=== PATIENT | male | born 1960 | race Caucasian/White ===

== ENCOUNTER → 2016-12-14 | Outpatient (CLI) | payer OTHER | LOC: M WUC 09:58 | PROVIDERS: ATTEND Nurse Practitioner Family | DX: E29.1 Testicular hypofunction (principal) ==

== ENCOUNTER → 2016-12-21 | Outpatient (CLI) | payer OTHER ==
[2016-12-21 19:00] LABS: ALBUMIN 4.3 GM/DL (3.2-5.2); ALBUMIN/GLOBULIN RATIO 1.34 (1.00-1.93); ALKALINE PHOSPHATASE 75 U/L (45-117); ALT/SGPT 38 U/L (12-78); ANION GAP 8 MEQ/L (8-16); AST/SGOT 14 U/L (15-37); BILIRUBIN,TOTAL 0.7 MG/DL (0.2-1.0); BLOOD UREA NITROGEN 14 MG/DL (7-18); CARBON DIOXIDE LEVEL 32 MEQ/L (21-32); CHLORIDE LEVEL 103 MEQ/L (98-107); CHOLESTEROL LEVEL 206 MG/DL (<200); CREATININE FOR GFR 1.06 MG/DL (0.70-1.30); GLOMERULAR FILTRATION RATE > 60.0 (>56); GLUCOSE, FASTING 78 MG/DL (70-105); POTASSIUM SERUM 4.2 MEQ/L (3.5-5.1); SODIUM LEVEL 143 MEQ/L (136-145); TOTAL PROTEIN 7.5 GM/DL (6.4-8.2); TRIGLYCERIDES LEVEL 320 MG/DL (<150)
[2016-12-23 14:12] LABS: PSA TOTAL 0.7 ng/mL (0.0-4.0)
== END ==
LOC: M WUC 12:21
PROVIDERS: ATTEND Nurse Practitioner Family
DX: E29.1 Testicular hypofunction (principal); E55.9 Vitamin D deficiency, unspecified; E78.4 Other hyperlipidemia; I10 Essential (primary) hypertension

== ENCOUNTER → 2017-02-02 | Outpatient (CLI) | payer OTHER | LOC: M WUC 08:10 | PROVIDERS: ATTEND Nurse Practitioner Family | DX: E29.1 Testicular hypofunction (principal) ==

== ENCOUNTER → 2017-10-18 | Outpatient (CLI) | payer OTHER ==
[2017-10-18 09:33] LABS: ANION GAP 5 MEQ/L (8-16); BLOOD UREA NITROGEN 18 MG/DL (7-18); CALCIUM LEVEL 9.3 MG/DL (8.5-10.1); CARBON DIOXIDE LEVEL 32 MEQ/L (21-32); CHLORIDE LEVEL 104 MEQ/L (98-107); CREATININE FOR GFR 1.18 MG/DL (0.70-1.30); GLOMERULAR FILTRATION RATE > 60.0 (>56); GLUCOSE, FASTING 92 MG/DL (70-105); POTASSIUM SERUM 5.1 MEQ/L (3.5-5.1); SODIUM LEVEL 141 MEQ/L (136-145)
== END ==
LOC: M WUC 08:15
PROVIDERS: ATTEND Nurse Practitioner Family
DX: I10 Essential (primary) hypertension (principal)

== ENCOUNTER → 2017-12-14 | Outpatient (CLI) | payer OTHER ==
[2017-12-17 00:06] LABS: TESTOSTERONE FREE (DIRECT) 49.1 pg/mL (7.2-24.0); TESTOSTERONE TOTAL FOR T&D > 1500.0 ng/dL (264-916)
== END ==
LOC: M WUC 12:40
DX: E29.1 Testicular hypofunction (principal)
CPT/HCPCS: 84403

== ENCOUNTER → 2017-12-14 | Outpatient (CLI) | payer OTHER | LOC: M WUC 12:36 | DX: M25.522 Pain in left elbow (principal) | CPT/HCPCS: 73080 ==

== ENCOUNTER → 2018-01-02 | Outpatient (CLI) | payer OTHER | LOC: M WUC 09:11 | DX: E29.1 Testicular hypofunction (principal) | CPT/HCPCS: 84403 ==

== ENCOUNTER → 2018-02-26 | Outpatient (CLI) | payer OTHER ==
[2018-02-28 00:06] LABS: TESTOSTERONE FREE (DIRECT) 18.4 pg/mL (7.2-24.0)
== END ==
LOC: M WUC 10:02
DX: E29.1 Testicular hypofunction (principal)
CPT/HCPCS: 84403

== ENCOUNTER → 2018-05-08 | Outpatient (CLI) | payer OTHER ==
[2018-05-08 12:49] LABS: TESTOSTERONE 841 NG/DL (241-827)
[2018-05-12 00:07] LABS: TESTOSTERONE %FREE+WEAKLY BOUN 18.8 % (9.0-46.0); TESTOSTERONE FREE+WEAKLY BOUND 163.2 ng/dL (40.0-250.0); TESTOSTERONE TOTAL 868 ng/dL (264-916)
== END ==
LOC: M WUC 09:44
DX: E29.1 Testicular hypofunction (principal)

== ENCOUNTER → 2018-09-04 | Outpatient (CLI) | payer OTHER ==
[2018-09-04 17:22] LABS: BASO # 0.1 10^3/uL (0.0-0.2); EOS # 0.1 10^3/uL (0.0-0.50); EOS % 1.6 % (0.0-3.0); HEMATOCRIT 40.1 % (42.0-52.0); HEMOGLOBIN 13.4 g/dl (13.5-17.5); IMMATURE GRANULOCYTE % 0.6 % (0-3.0); LYMPH # 1.5 10^3/uL (1.5-4.5); LYMPH % 30.8 % (24.0-44.0); MEAN CORPUSCULAR HEMOGLOBIN 33.3 pg (27.0-33.0); MEAN CORPUSCULAR HGB CONC 33.4 g/dl (32.0-36.5); MEAN CORPUSCULAR VOLUME 99.8 fl (80.0-96.0); MONO # 0.5 10^3/uL (0.0-0.8); MONO % 9.4 % (0.0-5.0); NEUTROPHILS # 2.8 10^3/uL (1.8-7.7); NEUTROPHILS % 56.6 % (36.0-66.0); PLATELET COUNT, AUTOMATED 304 10^3/uL (150-450); RED BLOOD COUNT 4.02 10^6/uL (4.30-6.10); RED CELL DISTRIBUTION WIDTH 12.2 % (11.5-14.5); WHITE BLOOD COUNT 4.9 10^3/uL (4.0-10.0)
[2018-09-04 18:20] LABS: ALBUMIN 3.9 GM/DL (3.2-5.2); ALBUMIN/GLOBULIN RATIO 1.18 (1.00-1.93); ALKALINE PHOSPHATASE 66 U/L (45-117); ALT/SGPT 27 U/L (12-78); ANION GAP 8 MEQ/L (8-16); AST/SGOT 18 U/L (7-37); BILIRUBIN,TOTAL 0.5 MG/DL (0.2-1.0); BLOOD UREA NITROGEN 18 MG/DL (7-18); CALCIUM LEVEL 8.8 MG/DL (8.5-10.1); CARBON DIOXIDE LEVEL 28 MEQ/L (21-32); CHLORIDE LEVEL 104 MEQ/L (98-107); CHOLESTEROL LEVEL 227 MG/DL (<200); CREATININE FOR GFR 1.01 MG/DL (0.70-1.30); GLOMERULAR FILTRATION RATE > 60.0 (>56); GLUCOSE, FASTING 75 MG/DL (70-100); HDL CHOLESTEROL 50 MG/DL (>40); LDL CHOLESTEROL 125 MG/DL (<100); NON-HDL-C 177 MG/DL; POTASSIUM SERUM 4.3 MEQ/L (3.5-5.1); SODIUM LEVEL 140 MEQ/L (136-145); TOTAL 25(OH) VITAMIN D 58.4 NG/ML (30.0-100.0); TOTAL PROTEIN 7.2 GM/DL (6.4-8.2); TRIGLYCERIDES LEVEL 261 MG/DL (<150)
[2018-09-07 00:24] LABS: PSA TOTAL 0.7 ng/mL (0.0-4.0)
[2018-09-09 00:06] LABS: TESTOSTERONE %FREE+WEAKLY BOUN 17.7 % (9.0-46.0); TESTOSTERONE FREE+WEAKLY BOUND 81.8 ng/dL (40.0-250.0); TESTOSTERONE TOTAL 462 ng/dL (264-916)
== END ==
LOC: M WUC 13:43
DX: I10 Essential (primary) hypertension (principal); Z12.5 Encounter for screening for malignant neoplasm of prostate; E29.1 Testicular hypofunction; E55.9 Vitamin D deficiency, unspecified

== ENCOUNTER → 2018-09-04 | Outpatient (CLI) | payer OTHER ==
[2018-09-04 17:54] LABS: FOLLICLE STIMULATING HORMONE 13.3 mIU/mL (1.4-18.1)
[2018-09-04 17:54] LABS: LUTEINIZING HORMONE 9.6 mIU/mL (1.5-9.3); PROLACTIN 8.4 NG/ML (2.1-17.7)
[2018-09-09 00:06] LABS: TESTOSTERONE %FREE+WEAKLY BOUN 13.8 % (9.0-46.0); TESTOSTERONE FREE+WEAKLY BOUND 63.2 ng/dL (40.0-250.0); TESTOSTERONE TOTAL 458 ng/dL (264-916)
== END ==
LOC: M WUC 13:38
DX: E29.1 Testicular hypofunction (principal)

== ENCOUNTER 2019-04-15 12:08 | Day surgery (SDC) | payer OTHER ==
[~2019-04-15] VITALS: Ht 185.4 cm; Wt 89.8 kg
[~2019-04-15 12:08] MED LIST: ASPI81TA85 PO; CENT1TAB2 PO; CLOB0.0548 TOP; GEMF600T5 PO; LEXA1TAB2 PO; LIPI80TA PO; LISI-538 PO; NS 1,000 ML IV ONE; OMEP-218 PO; PROP80CA PO; ULTR37.54 PO; VENL75TA2 PO; VIAG100T PO; VITA1CAP25 PO
[2019-04-15] MEDS ORDERED: PROPOFOL 200 MG/20 ML VIAL As Ordered ONE ×2 (13:18→13:30)
[2019-04-15] MEDS ORDERED: LIDOCAINE 2% INJ 100 MG/5 ML SDV (FOR ANES.) As Ordered ONE (13:18)
--- NOTE | 2019-04-15 13:53 | ROOR ---
Patient Name: Hung Davis Procedure Date: 04/15/2019 1:27 PM Date of : 1960 Age: 58 Room: [facility] Gender: Male Note Status: Finalized Procedure: Total Colonoscopy to Cecum + Cold Snare Polypectomy + Hemoclips Indications: High risk colon cancer surveillance: Personal history of colonic polyps, Last colonoscopy: 2014 Providers: Gregg Groves MD Referring MD: Yandel Ramirez NP Requesting Provider: Medicines: Monitored Anesthesia Care Complications: No immediate complications. Procedure: Pre-Anesthesia Assessment: - The heart rate, respiratory rate, oxygen saturations, blood pressure, adequacy of pulmonary ventilation, and response to care were monitored throughout the procedure. The Colonoscope was introduced through the anus and advanced to the cecum, identified by appendiceal orifice and ileocecal valve. The colonoscopy was performed without difficulty. The patient tolerated the procedure well. The quality of the bowel preparation was excellent. Findings: The perianal and digital rectal examinations were normal. Non-bleeding internal hemorrhoids were found during retroflexion. The hemorrhoids were small and Grade I (internal hemorrhoids that do not prolapse). Scattered small-mouthed diverticula were found in the recto-sigmoid colon, sigmoid colon and descending colon. Multiple sessile polyps were found in the proximal ascending colon. The polyps were small in size. These polyps were removed with a cold snare. Resection and retrieval were complete. To prevent bleeding after the polypectomy, two hemostatic clips were successfully placed (MR conditional). There was no bleeding at the end of the procedure. The exam was otherwise without abnormality on direct and retroflexion views. Impression: - Non-bleeding internal hemorrhoids. - Diverticulosis in the recto-sigmoid colon, in the sigmoid colon and in the descending colon. - Multiple small polyps in the proximal ascending colon, removed with a cold snare. Resected and retrieved. Clips (MR conditional) were placed. - The examination was otherwise normal on direct and retroflexion views. - The exam was otherwise normal to the cecum. Recommendation: - Patient has a contact number available for emergencies. The signs and symptoms of potential delayed complications were discussed with the patient. Return to normal activities tomorrow. Written discharge instructions were provided to the patient. - High fiber diet. - Discharge patient to home. - Continue present medications. - Await pathology results. - Telephone GI clinic for pathology results in 1 week. - Repeat colonoscopy in 5 years for surveillance based on pathology results. - Return to referring physician. - The findings and recommendations were discussed with the patient's family. Gregg Groves MD Gregg Groves MD 04/15/2019 1:52:39 PM Electronically signed by Gregg Groves MD Number of Addenda: 0 Note Initiated On: 04/15/2019 1:27 PM Estimated Blood Loss: Estimated blood loss: none.
[2019-04-15 14:20] VITALS: BP 121/71
== END 2019-04-15 14:22 | disposition home or self-care (01) ==
LOC: M OPP 12:08
PROVIDERS: ATTEND Internal Medicine Gastroenterology
DX: D12.2 Benign neoplasm of ascending colon (principal); K64.0 First degree hemorrhoids; K57.30 Diverticulosis of large intestine without perforation or abscess without bleeding; Z86.010 Personal history of colon polyps

== ENCOUNTER → 2019-09-03 | Outpatient (CLI) | payer OTHER ==
[~2019-09-03] MED LIST changes: -NS 1,000 ML IV ONE
[2019-09-03 13:02] LABS: BASO # 0.1 10^3/uL (0.0-0.2); BASO % 1.3 % (0.0-1.0); EOS # 0.1 10^3/uL (0.0-0.5); EOS % 2.3 % (0.0-3.0); HEMATOCRIT 41.6 % (42.0-52.0); HEMOGLOBIN 13.9 g/dl (13.5-17.5); LYMPH # 1.1 10^3/uL (1.5-5.0); LYMPH % 22.5 % (24.0-44.0); MEAN CORPUSCULAR HGB CONC 33.4 g/dl (32.0-36.5); MEAN CORPUSCULAR VOLUME 95.6 fl (80.0-96.0); MONO # 0.6 10^3/uL (0.0-0.8); MONO % 11.5 % (0.0-5.0); NEUTROPHILS % 62.2 % (36.0-66.0); PLATELET COUNT, AUTOMATED 296 10^3/uL (150-450); RED BLOOD COUNT 4.35 10^6/uL (4.30-6.10); WHITE BLOOD COUNT 4.8 10^3/uL (4.0-10.0)
[2019-09-03 13:43] LABS: ALBUMIN 4.1 GM/DL (3.2-5.2); ALT/SGPT 25 U/L (12-78); BILIRUBIN,TOTAL 0.3 MG/DL (0.2-1.0); BLOOD UREA NITROGEN 20 MG/DL (7-18); CALCIUM LEVEL 8.8 MG/DL (8.5-10.1); CARBON DIOXIDE LEVEL 28 MEQ/L (21-32); CHLORIDE LEVEL 103 MEQ/L (98-107); CHOLESTEROL LEVEL 314 MG/DL (<200); CHOLESTEROL RISK RATIO 6.408 (<5); CREATININE FOR GFR 1.06 MG/DL (0.70-1.30); FREE T4 0.94 NG/DL (0.76-1.46); GLOMERULAR FILTRATION RATE > 60.0 (>56); GLUCOSE, FASTING 94 MG/DL (70-100); HDL CHOLESTEROL 49 MG/DL (>40); LDL CHOLESTEROL 206 MG/DL (<100); MAGNESIUM LEVEL 2.2 MG/DL (1.8-2.4); NON-HDL-C 265 MG/DL; POTASSIUM SERUM 4.7 MEQ/L (3.5-5.1); SODIUM LEVEL 140 MEQ/L (136-145); THYROID STIMULATING HORMONE 0.689 uIU/ML (0.358-3.740); TOTAL 25(OH) VITAMIN D 48.4 NG/ML (30.0-100.0); TOTAL PROTEIN 7.5 GM/DL (6.4-8.2); TRIGLYCERIDES LEVEL 294 MG/DL (<150)
[2019-09-03 15:27] LABS: HEMOGLOBIN A1c 5.6 %
== END ==
LOC: M WUC 11:47
PROVIDERS: ATTEND Nurse Practitioner Family
DX: I10 Essential (primary) hypertension (principal); E78.5 Hyperlipidemia, unspecified; E55.9 Vitamin D deficiency, unspecified

== ENCOUNTER → 2019-12-12 | Outpatient (CLI) | payer OTHER ==
[2019-12-12 16:20] LABS: BASO # 0.1 10^3/uL (0.0-0.2); BASO % 0.7 % (0.0-1.0); EOS # 0.2 10^3/uL (0.0-0.5); EOS % 2.7 % (0.0-3.0); HEMATOCRIT 41.8 % (42.0-52.0); HEMOGLOBIN 13.6 g/dl (13.5-17.5); LYMPH # 1.8 10^3/uL (1.5-5.0); LYMPH % 27.1 % (24.0-44.0); MEAN CORPUSCULAR HEMOGLOBIN 32.2 pg (27.0-33.0); MEAN CORPUSCULAR HGB CONC 32.5 g/dl (32.0-36.5); MEAN CORPUSCULAR VOLUME 98.8 fl (80.0-96.0); MONO # 0.6 10^3/uL (0.0-0.8); MONO % 9.1 % (0.0-5.0); NEUTROPHILS % 60.1 % (36.0-66.0); PLATELET COUNT, AUTOMATED 272 10^3/uL (150-450); RED BLOOD COUNT 4.23 10^6/uL (4.30-6.10); WHITE BLOOD COUNT 6.7 10^3/uL (4.0-10.0)
[2019-12-12 16:30] LABS: ALBUMIN 4.1 GM/DL (3.2-5.2); ALT/SGPT 28 U/L (12-78); BILIRUBIN,TOTAL 0.7 MG/DL (0.2-1.0); BLOOD UREA NITROGEN 18 MG/DL (7-18); CALCIUM LEVEL 8.6 MG/DL (8.5-10.1); CARBON DIOXIDE LEVEL 29 MEQ/L (21-32); CHLORIDE LEVEL 106 MEQ/L (98-107); CHOLESTEROL LEVEL 225 MG/DL (<200); CHOLESTEROL RISK RATIO 4.166 (<5); CREATININE FOR GFR 1.06 MG/DL (0.70-1.30); GLOMERULAR FILTRATION RATE > 60.0 (>56); GLUCOSE, FASTING 92 MG/DL (70-100); HDL CHOLESTEROL 54 MG/DL (>40); LDL CHOLESTEROL 102 MG/DL (<100); NON-HDL-C 171 MG/DL; POTASSIUM SERUM 4.3 MEQ/L (3.5-5.1); SODIUM LEVEL 140 MEQ/L (136-145); TOTAL PROTEIN 7.2 GM/DL (6.4-8.2); TRIGLYCERIDES LEVEL 343 MG/DL (<150)
[2019-12-12 16:38] LABS: TOTAL 25(OH) VITAMIN D 47.4 NG/ML (30.0-100.0)
== END ==
LOC: M WUC 11:46
PROVIDERS: ATTEND Nurse Practitioner Family
DX: I10 Essential (primary) hypertension (principal); E78.5 Hyperlipidemia, unspecified; E55.9 Vitamin D deficiency, unspecified; Z12.5 Encounter for screening for malignant neoplasm of prostate
CPT/HCPCS: 36415; 80053; 80061; 82306; 85025; G0103

== ENCOUNTER → 2019-12-16 | Outpatient (CLI) | payer OTHER ==
--- NOTE | 2019-12-17 01:19 | REPPI ---
Clinical: Trauma. Pain. Technique: AP, lateral, bilateral oblique views of the left hand. Findings: No acute fracture or dislocation. A 2 mm corticated density is appreciated adjacent to the base of the fifth proximal phalanx which appears nonacute. Generalized age-related changes noted. No subcutaneous emphysema or foreign body. Impression: No acute fracture dislocation. As above. Electronically Signed by Juan Daniel Mehta MD 12/17/2019 01:11 A
== END ==
LOC: M PLAIMG 11:54
PROVIDERS: ATTEND Nurse Practitioner Family
DX: M79.642 Pain in left hand (principal)

== ENCOUNTER → 2020-06-02 | Outpatient (CLI) | payer OTHER ==
[~2020-06-02] MED LIST changes: -ASPI81TA85 PO; +ASPI81TA86 PO
--- NOTE | 2020-06-03 07:28 | REPPI ---
HAND: REASON FOR EXAM: Hand pain. FINDINGS: The joint spaces are symmetric and relatively well maintained. There is no evidence of acute fracture or destructive osseous lesion. IMPRESSION: Negative. Electronically Signed by Gunner Jennings DO 06/03/2020 09:33 A
== END ==
LOC: M PLAIMG 15:47
PROVIDERS: ATTEND Physician Assistant
DX: M79.641 Pain in right hand (principal)

== ENCOUNTER → 2020-11-09 | Outpatient (REF) | payer OTHER ==
[2020-11-09 14:30] LABS: BASO # 0.1 10^3/uL (0.0-0.2); EOS # 0.2 10^3/uL (0.0-0.5); EOS % 2.8 % (0.0-3.0); HEMATOCRIT 40.1 % (42.0-52.0); HEMOGLOBIN 12.8 g/dl (13.5-17.5); LYMPH # 1.6 10^3/uL (1.5-5.0); LYMPH % 25.7 % (24.0-44.0); MEAN CORPUSCULAR HGB CONC 31.9 g/dl (32.0-36.5); MEAN CORPUSCULAR VOLUME 100.3 fl (80.0-96.0); MONO # 0.7 10^3/uL (0.0-0.8); NEUTROPHILS # 3.6 10^3/uL (1.5-8.5); NEUTROPHILS % 59.3 % (36.0-66.0); PLATELET COUNT, AUTOMATED 279 10^3/uL (150-450); WHITE BLOOD COUNT 6.1 10^3/uL (4.0-10.0)
[2020-11-09 14:54] LABS: HEMOGLOBIN A1c 5.5 %
[2020-11-09 15:17] LABS: ALBUMIN 3.9 GM/DL (3.2-5.2); ALT/SGPT 57 U/L (12-78); BILIRUBIN,TOTAL 0.4 MG/DL (0.2-1.0); BLOOD UREA NITROGEN 24 MG/DL (7-18); CALCIUM LEVEL 9.5 MG/DL (8.8-10.2); CARBON DIOXIDE LEVEL 32 MEQ/L (21-32); CHLORIDE LEVEL 107 MEQ/L (98-107); CHOLESTEROL LEVEL 220 MG/DL (<200); CREATININE FOR GFR 1.18 MG/DL (0.70-1.30); FREE T4 0.94 NG/DL (0.76-1.46); GLOMERULAR FILTRATION RATE > 60.0 (>49); GLUCOSE, FASTING 91 MG/DL (70-100); HDL CHOLESTEROL 53 MG/DL (>40); LDL CHOLESTEROL 109 MG/DL (<100); LIPASE 156 U/L (73-393); NON-HDL-C 167 MG/DL; POTASSIUM SERUM 4.4 MEQ/L (3.5-5.1); SODIUM LEVEL 140 MEQ/L (136-145); THYROID STIMULATING HORMONE 0.683 uIU/ML (0.358-3.740); TOTAL 25(OH) VITAMIN D 45.3 NG/ML (30.0-100.0); TOTAL PROTEIN 7.3 GM/DL (6.4-8.2); TRIGLYCERIDES LEVEL 291 MG/DL (<150)
== END ==
LOC: M SFHCPLAZ 10:56
PROVIDERS: ATTEND Nurse Practitioner Family
DX: R19.8 Other specified symptoms and signs involving the digestive system and abdomen (principal); I10 Essential (primary) hypertension; E78.5 Hyperlipidemia, unspecified; R73.01 Impaired fasting glucose; E55.9 Vitamin D deficiency, unspecified

== ENCOUNTER → 2020-11-09 | Outpatient (CLI) | payer OTHER ==
--- NOTE | 2020-11-09 14:59 | REPPI ---
INDICATION: ABDOMINAL FULLNESS. COMPARISON: None. TECHNIQUE: Two AP supine views of the abdomen and pelvis. FINDINGS: The bowel gas pattern is normal. There is scattered fecal residue throughout the nondistended colon. There is tiny calcifications in the pelvis, likely phleboliths. There is lumbar scoliosis convex left at the lumbosacral junction. IMPRESSION: Normal bowel gas pattern. <Electronically signed by Nicholas Bird > 11/09/20 [id number]
== END ==
LOC: M PLAIMG 10:57
PROVIDERS: ATTEND Nurse Practitioner Family
DX: R19.8 Other specified symptoms and signs involving the digestive system and abdomen (principal)

== ENCOUNTER 2021-01-26 19:43 | Observation (INO) | payer OTHER ==
[~2021-01-26] VITALS: Ht 185.4 cm; Wt 89.6 kg
[~2021-01-26 19:43] MED LIST changes: -LISI-538 PO; +LISI20TA33 PO
[2021-01-26] MEDS ORDERED: hydrALAZINE 20MG/ML 1ML VIAL (J0360 PER 20MG) IV STA (19:55)
[2021-01-26] MEDS ORDERED: ISOVUE-370 76% 100ML VIAL As Ordered ONE (20:03)
[2021-01-26 20:12] LABS: BASO # 0.1 10^3/uL (0.0-0.2); BASO % 0.8 % (0.0-1.0); EOS # 0.1 10^3/uL (0.0-0.5); EOS % 1.7 % (0.0-3.0); HEMATOCRIT 37.4 % (42.0-52.0); HEMOGLOBIN 12.9 g/dl (13.5-17.5); LYMPH # 0.9 10^3/uL (1.5-5.0); LYMPH % 14.5 % (24.0-44.0); MEAN CORPUSCULAR HGB CONC 34.5 g/dl (32.0-36.5); MEAN CORPUSCULAR VOLUME 92.8 fl (80.0-96.0); MONO # 0.4 10^3/uL (0.0-0.8); MONO % 6.5 % (2.0-8.0); NEUTROPHILS # 4.9 10^3/uL (1.5-8.5); NEUTROPHILS % 76.3 % (36.0-66.0); PLATELET COUNT, AUTOMATED 284 10^3/uL (150-450); RED BLOOD COUNT 4.03 10^6/uL (4.30-6.10); WHITE BLOOD COUNT 6.4 10^3/uL (4.0-10.0)
--- NOTE | 2021-01-26 20:18 | REPVR ---
PROCEDURE INFORMATION: Exam: XR Chest Exam date and time: 01/26/2021 8:04 PM Age: 60 years old Clinical indication: Other: Elevated BP TECHNIQUE: Imaging protocol: XR of the chest Views: 1 view. COMPARISON: No relevant prior studies available. FINDINGS: Lungs: Degree of lung inflation is normal. No evidence of pulmonary edema. No focal consolidation or parenchymal lung mass. Pleural spaces: No pleural effusion or pneumothorax. Heart/Mediastinum: Cardiac silhouette appears normal. No adenopathy or hilar mass. Bones/joints: Osseous structures show no concerning abnormality. IMPRESSION: No acute or focal cardiopulmonary process. Electronically signed by: Oracio Liz On 01/26/2021 20:19:07 PM
[2021-01-26 20:22] LABS: PARTIAL THROMBOPLASTIN TIME 25.8 SECONDS (24.2-38.5)
[2021-01-26] MEDS ORDERED: niCARdipine IV 40 MG in IV 1 EA IV SCH (20:26)
[2021-01-26 20:29] LABS: ERYTHROCYTE SEDIMENTATION RATE 12 mm/hr (0-20)
--- NOTE | 2021-01-26 20:31 | REPVR ---
PROCEDURE INFORMATION: Exam: CT Head Without Contrast Exam date and time: 01/26/2021 8:07 PM Age: 60 years old Clinical indication: Pain; Headache; Additional info: Headache/ h/o aneurysm TECHNIQUE: Imaging protocol: Computed tomography of the head without contrast. Radiation optimization: All CT scans at this facility use at least one of these dose optimization techniques: automated exposure control; mA and/or kV adjustment per patient size (includes targeted exams where dose is matched to clinical indication); or iterative reconstruction. COMPARISON: No relevant prior studies available. FINDINGS: Brain: No intracranial mass, mass effect or midline shift. No acute intracranial hemorrhage. No CT evidence of acute cortical infarct. Ventricles, cisterns, and sulci are normal in size for age. Right parietal volume loss, gliosis and compensatory right lateral ventricle dilatation Bones/joints: No calvarial fracture or destructive process. Right parietal craniotomy changes, mature Paranasal sinuses: Imaged paranasal sinuses are normally aerated. Mastoid air cells: Mastoid air cells and middle ear structures are normally aerated. Orbital cavity: Imaged orbits are unremarkable. Soft tissues: No focal extracranial soft tissue swelling. IMPRESSION: 1. No acute or concerning focal intracranial abnormality. No evidence of subarachnoid hemorrhage. 2. Postsurgical changes of right parietal craniotomy and probable prior mass resection, with volume loss Electronically signed by: Oracio Liz On 01/26/2021 20:31:26 PM
--- NOTE | 2021-01-26 20:34 | REPVR ---
PROCEDURE INFORMATION: Exam: CT Angiography Neck With Contrast Exam date and time: 01/26/2021 8:07 PM Age: 60 years old Clinical indication: Pain; Headache; Additional info: Headache/ h/o aneurysm TECHNIQUE: Imaging protocol: Computed tomography angiography of the neck with intravenous contrast. 3D rendering (Not supervised by radiologist): MIP and/or 3D reconstructed images were created by the technologist. Radiation optimization: All CT scans at this facility use at least one of these dose optimization techniques: automated exposure control; mA and/or kV adjustment per patient size (includes targeted exams where dose is matched to clinical indication); or iterative reconstruction. Contrast material: ISOVUE 370; Contrast volume: 75 ml; Contrast route: INTRAVENOUS (IV); COMPARISON: No relevant prior studies available. FINDINGS: Right common carotid, cervical ICA and proximal ECA demonstrate contrast opacification with no occlusion, flow limiting stenosis, or intimal flap to suggest dissection. Mild right carotid bulb calcified plaque with negligible hemodynamic effect Left common carotid, cervical ICA and proximal ECA demonstrate contrast opacification, with no occlusion, flow limiting stenosis, or intimal flap to suggest dissection. Mild left carotid bulb calcified eccentric plaque with milder than 50% luminal caliber narrowing. Normal left ICA Vertebral arteries demonstrate normal course to the level of the skull base and show no occlusion, flow limiting stenosis or dissection. No flow limiting stenosis or anomaly of the great vessel origins. No concerning asymmetric neck soft tissue abnormality. Multi-level cervical degenerative disc and articular pillar arthropathy is present. IMPRESSION: Mild calcified bilateral carotid bulb atherosclerotic plaque with certainly milder than 50% luminal caliber narrowing, negligible hemodynamic effect bilaterally. REFERENCES: NASCET CRITERIA. The degree of internal carotid artery stenosis is based on NASCET criteria. Normal is no stenosis. Mild is less than 50% stenosis. Moderate is 50-69% stenosis. Severe is 70% to 99% stenosis. Total occlusion is no detectable patent lumen. Electronically signed by: Oracio Liz On 01/26/2021 20:34:40 PM
[2021-01-26 20:36] LABS: INR 0.98; PROTHROMBIN TIME 13.2 SECONDS (12.5-14.3)
--- NOTE | 2021-01-26 20:36 | REPVR ---
PROCEDURE INFORMATION: Exam: CT Angiography Head With Contrast Exam date and time: 01/26/2021 8:07 PM Age: 60 years old Clinical indication: Pain; Headache; Additional info: Headache/ h/o aneurysm TECHNIQUE: Imaging protocol: Computed tomography angiography of the head with intravenous contrast. 3D rendering (Not supervised by radiologist): MIP and/or 3D reconstructed images were created by the technologist. Radiation optimization: All CT scans at this facility use at least one of these dose optimization techniques: automated exposure control; mA and/or kV adjustment per patient size (includes targeted exams where dose is matched to clinical indication); or iterative reconstruction. Contrast material: ISOVUE 370; Contrast volume: 75 ml; Contrast route: INTRAVENOUS (IV); COMPARISON: No relevant prior studies available. FINDINGS: Left parietal vertex volume loss with overlying craniotomy Ventricles, cisterns and sulci are otherwise symmetric and appropriate for age. No intracranial mass or focal mass effect. No intracranial hemorrhage, midline shift or acute territorial infarct. Anterior circulation: Normal contrast opacification and luminal caliber in the petrous, cavernous and supraclinoid internal carotid arteries. Normal appearance of the anterior cerebral artery branches and middle cerebral artery branches through the MCA trifurcations. No occlusion, high-grade focal stenosis or dissection. No aneurysm. Posterior circulation: Minimal atherosclerotic plaque, right vertebral artery at the occipital condyle level. Normally enhancing distal vertebral arteries, with patent normal caliber basilar artery, and normal superior cerebellar and posterior cerebral arteries. No occlusion, high-grade stenosis or aneurysm. Dural sinuses enhance normally. Bony structures show no acute fracture or destructive process. IMPRESSION: Unremarkable CT Angiogram of the head and [place]. No intracranial large vessel occlusive or high-grade stenotic lesion and no evidence of intracranial aneurysm Electronically signed by: Oracio Liz On 01/26/2021 20:37:17 PM
[2021-01-26] MEDS ORDERED: ONDANSETRON 4MG/2ML VIAL IV ONE ×2 (20:40→20:50)
[2021-01-26] MEDS ORDERED: ONDANSETRON 4MG/2ML VIAL As Ordered ONE (20:48)
[2021-01-26] MEDS: OMEPRAZOLE 20 MG CAP PO SCH (21:00)
[2021-01-26 21:04] LABS: ALBUMIN 2.6 GM/DL (3.2-5.2); ALT/SGPT 27 U/L (12-78); BILIRUBIN,DIRECT 0.1 MG/DL (0.0-0.2); BILIRUBIN,TOTAL 0.4 MG/DL (0.2-1.0); BLOOD UREA NITROGEN 14 MG/DL (7-18); CALCIUM LEVEL 5.6 MG/DL (8.8-10.2); CARBON DIOXIDE LEVEL 19 MEQ/L (21-32); CHLORIDE LEVEL 119 MEQ/L (98-107); CK-MB VALUE MASS 1.1 NG/ML (<3.6); CPK CREATINE PHOSPHOKINASE 67 U/L (39-308); CREATININE FOR GFR 0.49 MG/DL (0.70-1.30); FREE T4 1.01 NG/DL (0.76-1.46); GLOMERULAR FILTRATION RATE > 60.0 (>49); GLUCOSE, FASTING 102 MG/DL (70-100); MB/CK RELATIVE INDEX 1.64 (< OR =4); NT-PRO BNP 85 PG/ML (<125); POTASSIUM SERUM 2.8 MEQ/L (3.5-5.1); SODIUM LEVEL 145 MEQ/L (136-145); THYROID STIMULATING HORMONE 0.337 uIU/ML (0.358-3.740); TOTAL PROTEIN 4.7 GM/DL (6.4-8.2); TROPONIN I < 0.02 NG/ML (< 0.10)
[2021-01-26 22:45] LABS: AMPHETAMINES LEVEL URINE NEGATIVE (NEGATIVE); BARBITURATES URINE NEGATIVE (NEGATIVE); BENZODIAZEPINES URINE NEGATIVE (NEGATIVE); CANNABINOIDS URINE POSITIVE (NEGATIVE); COCAINE METABOLITE URINE NEGATIVE (NEGATIVE); METHADONE URINE NEGATIVE (NEGATIVE); OPIATES URINE NEGATIVE (NEGATIVE); PHENCYCLIDINE URINE NEGATIVE (NEGATIVE)
[2021-01-26 22:48] LABS: RSV AMPLIFICATION NEGATIVE (NEGATIVE)
[2021-01-26 22:50] LABS: BLOOD UREA NITROGEN 18 MG/DL (7-18); CALCIUM LEVEL 8.7 MG/DL (8.8-10.2); CARBON DIOXIDE LEVEL 29 MEQ/L (21-32); CHLORIDE LEVEL 103 MEQ/L (98-107); CREATININE FOR GFR 0.96 MG/DL (0.70-1.30); GLOMERULAR FILTRATION RATE > 60.0 (>49); GLUCOSE, FASTING 115 MG/DL (70-100); MAGNESIUM LEVEL 1.9 MG/DL (1.8-2.4); POTASSIUM SERUM 3.9 MEQ/L (3.5-5.1); SODIUM LEVEL 137 MEQ/L (136-145)
[2021-01-26] MEDS ORDERED: PROP80CA PO ×2 (22:56→23:06)
[2021-01-26] MEDS ORDERED: LISI20TA33 PO ×2 (22:56→23:06)
[2021-01-26] MEDS ORDERED: OMEP-218 PO (22:56)
[2021-01-26] MEDS ORDERED: VITMTA PO ×2 (22:56→23:06)
[2021-01-26] MEDS ORDERED: ULTR37.54 PO ×2 (22:56→23:06)
[2021-01-26] MEDS ORDERED: ASPI-161 PO ×2 (22:56→23:03)
[2021-01-26] MEDS ORDERED: VITA50005 PO ×2 (22:56→23:03)
[2021-01-26] MEDS ORDERED: VENL75TA2 PO ×2 (22:56→23:06)
[2021-01-26] MEDS ORDERED: ATOR80TA59 PO (23:03)
[2021-01-26] MEDS ORDERED: OMEP1CAP73 PO (23:06)
[2021-01-26] MEDS ORDERED: VIAG100T PO (23:06)
[2021-01-26] MEDS ORDERED: PERCOCET 5MG/325MG TAB PO ONE (23:50)
[2021-01-26] MEDS ORDERED: CYCLOBENZAPRINE 5MG TABLET PO ONE (23:50)
--- NOTE | 2021-01-26 23:53 | HPEPDOC ---
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 Patient admits to dietary indiscretion with increased salt intake at home, but denies chest pain, pressure, confusion, chest tightness, chest heaviness, lightheadedness, dizziness, palpitations, diaphoresis, shortness of breath, changes in vision, nausea, vomiting, or worsening upper or lower extremity weakness or paresthesias. Patient denies any fever, chills, rhinorrhea, or recent upper respiratory infection. In the emergency room he was found to have blood pressure of 236/116, hypokalemia, hypocalcemia, and metabolic acidosis. CT of the head was negative for intracranial hemorrhage. CTA of the neck was negative. Chest x-ray had no pulmonary edema or widened mediastinum. EKG showed sinus rhythm, ventricular rate of [address]-T wave changes. Troponin was negative. Patient denies any recreational drug use, noncompliance with blood pressure medications, or history of hyperaldosteronism. He also complains of neck spasms which he has at home, usually alleviated with tramadol as needed. Hospitalist was asked to admit for hypertensive urgency with no end organ damage and electrolyte abnormalities. 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 Colonoscopy by Dr. Groves March 2019 SOCIAL HISTORY: Denies recreational drug use. Quit smoking at the age of 27 smoked a pack a day from age [age], divorce. 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 Patient has a son and daughter. No designated healthcare proxy . Full code FAMILY HISTORY: . Father unknown causes in his 70s. Mother with kidney failure. Siblings alive. One brother of testicular cancer. Has 1 son, 1 daughter, both of whom are healthy ALLERGIES: Please see below. REVIEW OF SYSTEMS: 12 point review of system is negative aside from positive findings in HPI. HOME MEDICATIONS: Please see below. PHYSICAL EXAMINATION: VITAL SIGNS: See below GENERAL APPEARANCE: Awake, alert, oriented 3, answering questions appropriately. No respiratory distress, pallor, cyanosis HEENT: Pupils equally round, reactive to light accommodation. Extraocular muscles intact. No JVD, no thyromegaly, no cervical lymphadenopathy. Moist mucous membranes. Face is symmetric. Tongue is midline CARDIOVASCULAR: S1, S2 regular rate rhythm. Nondisplaced point of maximal impulse LUNGS: Clear to auscultation. Bronchial breath sounds .No wheezing rales or rhonchi ABDOMEN: Positive bowel sounds, soft, nontender, nondistended, no hepatosplenomegaly. No rebound or guarding. No abdominal bruit EXTREMITIES: No cyanosis, clubbing or pitting edema NEUROLOGIC: Awake, alert, oriented 3. Face is symmetric. Tongue is midline with dysmetria and finger to nose testing. No pronator drift. Left upper lower extremity 5 out of 5 motor function. No sensory disturbance, bilateral upper and lower extremities. Right upper and lower extremity 4 out of 5-chronic since left parietal craniotomy per the patient. Negative Babinski bilaterally. Speech is fluent. LABORATORY DATA: See below. IMAGING: Exam: CT Angiography Head With Contrast Exam date and time: 01/26/2021 8:07 PM Age: 60 years old Clinical indication: Pain; Headache; Additional info: Headache/ h/o aneurysm TECHNIQUE: Imaging protocol: Computed tomography angiography of the head with intravenous contrast. 3D rendering (Not supervised by radiologist): MIP and/or 3D reconstructed images were created by the technologist. Radiation optimization: All CT scans at this facility use at least one of these dose optimization techniques: automated exposure control; mA and/or kV adjustment per patient size (includes targeted exams where dose is matched to clinical indication); or iterative reconstruction. Contrast material: ISOVUE 370; Contrast volume: 75 ml; Contrast route: INTRAVENOUS (IV); COMPARISON: No relevant prior studies available. FINDINGS: Left parietal vertex volume loss with overlying craniotomy Ventricles, cisterns and sulci are otherwise symmetric and appropriate for age. No intracranial mass or focal mass effect. No intracranial hemorrhage, midline shift or acute territorial infarct. Anterior circulation: Normal contrast opacification and luminal caliber in the petrous, cavernous and supraclinoid internal carotid arteries. Normal appearance of the anterior cerebral artery branches and middle cerebral artery branches through the MCA trifurcations. No occlusion, high-grade focal stenosis or dissection. No aneurysm. Posterior circulation: Minimal atherosclerotic plaque, right vertebral artery at the occipital condyle level. Normally enhancing distal vertebral arteries, with patent normal caliber basilar artery, and normal superior cerebellar and posterior cerebral arteries. No occlusion, high-grade stenosis or aneurysm. Dural sinuses enhance normally. Bony structures show no acute fracture or destructive process. IMPRESSION: Unremarkable CT Angiogram of the head and [place]. No intracranial large vessel occlusive or high-grade stenotic lesion and no evidence of intracranial aneurysm Electronically signed by: Oracio Liz On 01/26/2021 20:37:17 PM MICROBIOLOGY: Please see below. Exam: CT Head Without Contrast Exam date and time: 01/26/2021 8:07 PM Age: 60 years old Clinical indication: Pain; Headache; Additional info: Headache/ h/o aneurysm TECHNIQUE: Imaging protocol: Computed tomography of the head without contrast. Radiation optimization: All CT scans at this facility use at least one of these dose optimization techniques: automated exposure control; mA and/or kV adjustment per patient size (includes targeted exams where dose is matched to clinical indication); or iterative reconstruction. COMPARISON: No relevant prior studies available. FINDINGS: Brain: No intracranial mass, mass effect or midline shift. No acute intracranial hemorrhage. No CT evidence of acute cortical infarct. Ventricles, cisterns, and sulci are normal in size for age. Right parietal volume loss, gliosis and compensatory right lateral ventricle dilatation Bones/joints: No calvarial fracture or destructive process. Right parietal craniotomy changes, mature Paranasal sinuses: Imaged paranasal sinuses are normally aerated. Mastoid air cells: Mastoid air cells and middle ear structures are normally aerated. Orbital cavity: Imaged orbits are unremarkable. Soft tissues: No focal extracranial soft tissue swelling. IMPRESSION: 1. No acute or concerning focal intracranial abnormality. No evidence of subarachnoid hemorrhage. 2. Postsurgical changes of right parietal craniotomy and probable prior mass resection, with volume loss Electronically signed by: Oracio Liz On 01/26/2021 20:31:26 PM Exam: CT Angiography Neck With Contrast Exam date and time: 01/26/2021 8:07 PM Age: 60 years old Clinical indication: Pain; Headache; Additional info: Headache/ h/o aneurysm TECHNIQUE: Imaging protocol: Computed tomography angiography of the neck with intravenous contrast. 3D rendering (Not supervised by radiologist): MIP and/or 3D reconstructed images were created by the technologist. Radiation optimization: All CT scans at this facility use at least one of these dose optimization techniques: automated exposure control; mA and/or kV adjustment per patient size (includes targeted exams where dose is matched to clinical indication); or iterative reconstruction. Contrast material: ISOVUE 370; Contrast volume: 75 ml; Contrast route: INTRAVENOUS (IV); COMPARISON: No relevant prior studies available. FINDINGS: Right common carotid, cervical ICA and proximal ECA demonstrate contrast opacification with no occlusion, flow limiting stenosis, or intimal flap to suggest dissection. Mild right carotid bulb calcified plaque with negligible hemodynamic effect Left common carotid, cervical ICA and proximal ECA demonstrate contrast opacification, with no occlusion, flow limiting stenosis, or intimal flap to suggest dissection. Mild left carotid bulb calcified eccentric plaque with milder than 50% luminal caliber narrowing. Normal left ICA Vertebral arteries demonstrate normal course to the level of the skull base and show no occlusion, flow limiting stenosis or dissection. No flow limiting stenosis or anomaly of the great vessel origins. No concerning asymmetric neck soft tissue abnormality. Multi-level cervical degenerative disc and articular pillar arthropathy is present. IMPRESSION: Mild calcified bilateral carotid bulb atherosclerotic plaque with certainly milder than 50% luminal caliber narrowing, negligible hemodynamic effect bilaterally. REFERENCES: NASCET CRITERIA. The degree of internal carotid artery stenosis is based on NASCET criteria. Normal is no stenosis. Mild is less than 50% stenosis. Moderate is 50-69% stenosis. Severe is 70% to 99% stenosis. Total occlusion is no detectable patent lumen. Electronically signed by: Oracio Liz On 01/26/2021 20:34:40 PM Exam: XR Chest Exam date and time: 01/26/2021 8:04 PM Age: 60 years old Clinical indication: Other: Elevated BP TECHNIQUE: Imaging protocol: XR of the chest Views: 1 view. COMPARISON: No relevant prior studies available. FINDINGS: Lungs: Degree of lung inflation is normal. No evidence of pulmonary edema. No focal consolidation or parenchymal lung mass. Pleural spaces: No pleural effusion or pneumothorax. Heart/Mediastinum: Cardiac silhouette appears normal. No adenopathy or hilar mass. Bones/joints: Osseous structures show no concerning abnormality. IMPRESSION: No acute or focal cardiopulmonary process. 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 Patient admits to dietary indiscretion with increased salt intake at home, but denies chest pain, pressure, confusion, chest tightness, chest heaviness, lightheadedness, dizziness, palpitations, diaphoresis, shortness of breath, c hanges in vision, nausea, vomiting, or worsening upper or lower extremity weakness or paresthesias. Patient denies any fever, chills, rhinorrhea, or recent upper respiratory infection. In the emergency room he was found to have blood pressure of 236/116, hypokalemia, hypocalcemia, and metabolic acidosis. CT of the head was negative for intracranial hemorrhage. CTA of the neck was negative. Chest x-ray had no pulmonary edema or widened mediastinum. EKG showed sinus rhythm, ventricular rate of [address]-T wave changes. Troponin was negative. Patient denies any recreational drug use, noncompliance with blood pressure medications, or history of hyperaldosteronism. He also complains of neck spasms which he has at home, usually alleviated with tramadol as needed. Hospitalist was asked to admit for hypertensive urgency with no end organ damage and electrolyte abnormalities. Hypertensive urgency -Patient had no end organ damage and had no evidence of intracranial hemorrhage, ischemic CVA, acute coronary syndrome, acute CHF, acute renal failure, hypertensive encephalopathy to suggest hypertensive emergency. -CT head was negative for intracranial hemorrhage. Patient responded to Nicardipine gtt, admitted to ICU. Will attempt to transition to Nitroglycerin, hydralazine and clonidine as nicardipine drip is titrated off. - Rule out primary hyperaldosteronism due to uncontrolled hypertension and hypokalemia, will check plasma renin activity, plasma renin concentration, plasma aldosterone. If abnormal results. Will need confirmatory 24-hour urine aldosterone serum sodium and creatinine, and referral to hypertensive specialist, Dr. Lenz as outpatient. Awaiting urine drug screen. Nothing by mouth after midnight to Rule out renal artery stenosis with renal Doppler in the morning. If negative renal artery stenosis, patient may be resumed back on his home lisinopril in the morning -Despite complaints of headache and tachycardia, patient denied palpitations, diaphoresis, tremors, pallor, and sweating to Suspect pheochromocytoma. Electrolyte abnormalities with hypokalemia and hypocalcemia -Repleted with potassium and calcium gluconate. Ruling out primary hyperaldost eronism by checking plasma renin, aldosterone. Headache -Due to hypertensive urgency. No signs of intracranial hemorrhage or acute ischemic CVA on CT of the head. Low TSH -Normal T4. Check full thyroid profile to rule out hyperthyroidism. 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 No active suicidal or homicidal ideation impaired fasting glucose -Check fasting glucose in the morning or A1c impaired mobility -Due to chronic right upper and lower extremity weakness from ruptured AVM chronic pain -Patient says he only takes tramadol as needed Chronic constipation -Bowel regimen CODE STATUS full code Diet 2 g sodium DVT prophylaxis. Compression stockings Vital Signs Vital Signs Date Time Temp Pulse Resp B/P (MAP) Pulse Ox O2 Delivery O2 Flow Rate FiO2 01/26/21 22:10 86 161/73 (102) 97 Room Air 01/26/21 20:55 19 01/26/21 19:50 97.4 Laboratory Data Labs 24H Laboratory Tests 2 01/26/21 19:52: POC Glucose (Misc Panel) 122H, POC Sodium (Misc Panel) 140, POC Potassium (Misc Panel) 3.4L, POC Chloride (Misc Panel) 109, POC Total CO2 (Misc Panel) 19.0L, POC Blood Urea Nitrogen (Misc Panel 15, POC Ionized Calcium (Misc Panel) 4.0L, POC Creatinine (Misc Panel) 0.6, POC Hematocrit (Misc Panel) 34.0L 01/26/21 20:03: Immature Granulocyte % (Auto) 0.2, Neutrophils (%) (Auto) 76.3H, Lymphocytes (%) (Auto) 14.5L, Monocytes (%) (Auto) 6.5, Eosinophils (%) (Auto) 1.7, Basophils (%) (Auto) 0.8, Neutrophils # (Auto) 4.9, Lymphocytes # (Auto) 0.9L, Monocytes # (Auto) 0.4, Eosinophils # (Auto) 0.1, Basophils # (Auto) 0.1, Nucleated Red Blood Cells % (auto) 0.0, Erythrocyte Sedimentation Rate 12, Prothrombin Time 13.2, Prothromb Time International Ratio 0.98, Activated Partial Thromboplast Time 25.8, Anion Gap 7L, Glomerular Filtration Rate > 60.0, Calcium Level 5.6*L, Total Bilirubin 0.4, Direct Bilirubin 0.1, Aspartate Amino Transf (AST/SGOT) 12, Alanine Aminotransferase (ALT/SGPT) 27, Alkaline Phosphatase 51, Total Creatine Kinase 67, Creatine Kinase MB 1.1, Creatine Kinase MB Relative Index 1.64, Troponin I < 0.02, C-Reactive Protein, Quantitative 0.30, BM-Whv-U-Type Natriuretic Peptide 85, Total Protein 4.7L, Albumin 2.6L, Albumin/Globulin Ratio 1.2, Thyroid Stimulating Hormone (TSH) 0.337L, Free Thyroxine 1.01 01/26/21 20:44: Urine Color YELLOW, Urine Appearance CLEAR, Urine pH 8.0, Urine Specific [place] 1.027, Urine Protein 1+H, Urine Glucose (UA) NEGATIVE, Urine Ketones 1+H, Urine Blood NEGATIVE, Urine Nitrite NEGATIVE, Urine Bilirubin NEGATIVE, Urine Urobilinogen 0.2, Urine Leukocyte Esterase NEGATIVE, Urine WBC (Auto) 0, Urine RBC (Auto) 1, Urine Hyaline Casts (Auto) 0, Urine Bacteria (Auto) NEGATIVE, Urine Squamous Epithelial Cells 0, Urine Mucus (Auto) SMALL, Urine Sperm (Auto) , Urine Opiates Screen NEGATIVE, Urine Methadone Screen NEGATIVE, Urine Barbiturates Screen NEGATIVE, Urine Phencyclidine Screen NEGATIVE, Urine Amphetamines Screen NEGATIVE, Urine Benzodiazepines Screen NEGATIVE, Urine Cocaine Metabolite Screen NEGATIVE, Urine Cannabinoids Screen POSITIVEH 01/26/21 21:55: Anion Gap 5L, Glomerular Filtration Rate > 60.0, Calcium Level 8.7#L, Whole Blood Ionized Calcium 4.4L, Magnesium Level 1.9, Coronavirus (COVID-19)(PCR) NEGATIVE, Influenza Type A (RT-PCR) NEGATIVE, Influenza Type B (RT-PCR) NEGATIVE, Respiratory Syncytial Virus (PCR) NEGATIVE CBC/BMP Laboratory Tests 01/26/21 20:03 01/26/21 21:55 Home Medications Scheduled Aspirin (Aspirin EC) 81 Mg Tablet.dr, 81 MG PO DAILY Atorvastatin Calcium (Atorvastatin Calcium) 80 Mg Tablet, 80 MG PO DAILY Ergocalciferol (Vitamin D2) (Vitamin D2) 50,000 Units Cap, 50,000 UNITS PO QWEEK WEDNESDAYS Lisinopril (Lisinopril) 20 Mg Tablet, 20 MG PO DAILY Multivitamins (Thera M Plus Tablet) 1 Each Tablet, 1 TAB PO DAILY Omeprazole (Omeprazole) 20 Mg Capsule.dr, 20 MG PO BID Propranolol HCl (Propranolol HCl ER) 80 Mg Cap.sa.24h, 80 MG PO DAILY Venlafaxine HCl (Venlafaxine HCl) 75 Mg Tablet, 75 MG PO DAILY Scheduled PRN Sildenafil Citrate (Viagra) 100 Mg Tablet, 100 MG PO ASDIRECTED PRN for ERECTILE DYSFUNCTION Tramadol HCl/Acetaminophen (Ultracet Tablet) 1 Each Tablet, 1 TAB PO DAILY PRN for PAIN Allergies Coded Allergies: phenytoin (Verified Allergy, Unknown, rash, 04/08/19) A-FIB/CHADSVASC A-FIB History Current/History of A-Fib/PAF?: No Current PO Anticoag Therapy: No Age/Risk Factor Scoring CHADSVASC: CHADSVASC Response (Comments) Value Age Risk Factor Age < 65 years old 0 Gender Risk Factor Male 0 Hx of CHF No 0 Hx of HTN Yes 1 Hx of Stroke/TIA/or VTE No 0 Hx of Diabetes No 0 Hx of Vascular Disease No 0 Total 1 Treatment Treatment ordered: NONE TORRES CONNOR MD Jan 26, 2021 22:59
[2021-01-26 23:55] VITALS: BP 143/75
[2021-01-26] MEDS ORDERED: POTASSIUM CHLORIDE 10 MEQ SR TABLET PO ONE (23:55)
[2021-01-26] MEDS ORDERED: CALCIUM GLUCONATE 1,000 MG in D5W MINI-BAG PLUS 100 ML IV ONE (23:55)
[2021-01-26] MEDS ORDERED: MAG SULF 1GM/100ML (MAG RUN) 1 GM in IV 1 EA IV ONE (23:55)
[2021-01-27] VITALS (24 sets, daily range): BP systolic 117–167; BP diastolic 56–92
[2021-01-27] MEDS: cloNIDine 0.1MG TABLET PO SCH ×4 (01:00→12:48)
[2021-01-27] MEDS: NITROGLYCERIN 2% OINT 1 GM *U/D* PKT TOP SCH ×4 (02:18→10:14)
[2021-01-27] MEDS: hydrALAZINE 20MG/ML 1ML VIAL (J0360 PER 20MG) IV SCH ×5 (03:08→12:07)
[2021-01-27 04:49] LABS: HEMATOCRIT 40.2 % (42.0-52.0); MEAN CORPUSCULAR HEMOGLOBIN 32.6 pg (27.0-33.0); MEAN CORPUSCULAR HGB CONC 34.8 g/dl (32.0-36.5); MEAN CORPUSCULAR VOLUME 93.7 fl (80.0-96.0); PLATELET COUNT, AUTOMATED 300 10^3/uL (150-450); RED BLOOD COUNT 4.29 10^6/uL (4.30-6.10); WHITE BLOOD COUNT 8.6 10^3/uL (4.0-10.0)
[2021-01-27 05:10] LABS: HEMOGLOBIN A1c 5.4 %
[2021-01-27 05:24] LABS: BLOOD UREA NITROGEN 17 MG/DL (7-18); CARBON DIOXIDE LEVEL 27 MEQ/L (21-32); CHLORIDE LEVEL 102 MEQ/L (98-107); CHOLESTEROL LEVEL 336 MG/DL (<200); CHOLESTEROL RISK RATIO 6.109 (<5); CK-MB VALUE MASS 1.5 NG/ML (<3.6); CPK CREATINE PHOSPHOKINASE 92 U/L (39-308); CREATININE FOR GFR 0.98 MG/DL (0.70-1.30); GLOMERULAR FILTRATION RATE > 60.0 (>49); GLUCOSE, FASTING 126 MG/DL (70-100); HDL CHOLESTEROL 55 MG/DL (>40); MAGNESIUM LEVEL 2.4 MG/DL (1.8-2.4); MB/CK RELATIVE INDEX 1.63 (< OR =4); NON-HDL-C 281 MG/DL; POTASSIUM SERUM 4.2 MEQ/L (3.5-5.1); SODIUM LEVEL 135 MEQ/L (136-145); TRIGLYCERIDES LEVEL 631 MG/DL (<150); TROPONIN I < 0.02 NG/ML (< 0.10)
[2021-01-27] MEDS ORDERED: ONDANSETRON 4MG/2ML VIAL IV ONE (06:30)
[2021-01-27] MEDS ORDERED: ACETAMINOPHEN 500 MG TAB PO ONE (06:30)
[2021-01-27] MEDS: ULTRACET TAB PO PRN ×2 (06:37→21:14)
--- NOTE | 2021-01-27 09:20 | REP ---
INDICATION: HYPERTENSIVE EMERGENCY R/O RENAL ARTERY STENOSIS COMPARISON: None TECHNIQUE: Real time gastelum scale ultrasound examination using curved array transducer followed by color Doppler evaluation of the renal vasculature. FINDINGS: The bilateral kidneys demonstrate normal contour, size, echogenicity, and reniform shape. Mildly increased central sinus fat suggests chronic renal disease. Right kidney measures 10.2 x 5.0 x 4.2 cm. Left kidney measures 10.3 x 4.6 x 5.6 cm and includes incidental column of [place]. Bladder is under distended. COLOR DOPPLER EVALUATION . Peak aortic velocity: 120 centimeters/second RIGHT KIDNEY Renal arterial velocity: 144 centimeters/second Renal-aortic ratio: 1.2 Intrarenal resistive indices: 0.62-0.68 Intrarenal acceleration times: 0.040-0.042 LEFT KIDNEY Renal arterial velocity: 124 centimeters/second Renal-aortic ratio: 1.0 Intrarenal resistive indices: 0.64-0.74 Intrarenal acceleration times: 0.022-0.044 IMPRESSION: 1. Kidneys appear normal. 2. Doppler interegation without sonographic evidence for renal arterial stenosis. <Electronically signed by Juan Daniel Mehta > 01/27/21 0916
[2021-01-27] MEDS: MULTIVITAMINS/MINERALS THERAP 1 TAB PO SCH (10:01)
[2021-01-27] MEDS: ATORVASTATIN 20 MG TAB PO SCH (10:02)
[2021-01-27] MEDS: OMEPRAZOLE 20 MG CAP PO SCH ×2 (10:02→21:06)
[2021-01-27] MEDS: ASPIRIN 81 MG ENTERIC TAB PO SCH (10:03)
[2021-01-27] MEDS: PROPRANOLOL 80 MG LA CAP PO SCH (10:03)
[2021-01-27] MEDS ORDERED: ONDANSETRON 4MG/2ML VIAL IV PRN (10:30)
[2021-01-27] MEDS ORDERED: ACETAMINOPHEN TAB 650MG DOSE (2X325MG) PO PRN (10:30)
--- NOTE | 2021-01-27 13:13 | IPNPDOC ---
Date Seen The patient was seen on 01/27/21. 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 CT head and CTA neck were negative. CXR did not show pulmonary edema or widened mediastinum. EKG showed NSR. Patient was treated with nicardipine drip for HTN urgency successfully. BP in am 120s/70s. Downgraded to Med/surg tele. Patient was seen and examined at bedside this morning. Doing well. No acute events overnight. States that headache has improved down to a 02/03. C/o R neck spasm/pain, believes it may be radiating to his head. Otherwise, no fevers, no chest pain, no SOB, no palpitations. OBJECTIVE PHYSICAL EXAMINATION: VITAL SIGNS: please see below General: NAD, comfortable HEENT: PERRLA, EOMI, sclerae clear Neck: supple, normal ROM, no JVD Respiratory: lungs CTAB, no wheeze, no rales, no crackles CVS: RRR, normal S1, S2, no murmurs Abdo: soft, no masses, no hepatosplenomegaly, BS+, no rebound tenderness Extremities: no edema, pulses 2+ MSK: no joint deformities, normal ROM Neuro: no focal neuro deficits, moving all 4 extremities, CN2-12 intact. 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 Psych: calm, cooperative, AAO x 3. LABORATORY DATA, IMAGING STUDIES, MICROBIOLOGY: Please see below. Bilateral Renal US w/ dopplers (01/27/21): The bilateral kidneys demonstrate normal contour, size, echogenicity, and reniform shape. Mildly increased central sinus fat suggests chronic renal disease. Right kidney measures 10.2 x 5.0 x 4.2 cm. Left kidney measures 10.3 x 4.6 x 5.6 cm and includes incidental column of [place]. Bladder is under distended. COLOR DOPPLER EVALUATION . Peak aortic velocity: 120 centimeters/second RIGHT KIDNEY Renal arterial velocity: 144 centimeters/second Renal-aortic ratio: 1.2 Intrarenal resistive indices: 0.62-0.68 Intrarenal acceleration times: 0.040-0.042 LEFT KIDNEY Renal arterial velocity: 124 centimeters/second Renal-aortic ratio: 1.0 Intrarenal resistive indices: 0.64-0.74 Intrarenal acceleration times: 0.022-0.044 IMPRESSION: 1. Kidneys appear normal. 2. Doppler interegation without sonographic evidence for renal arterial stenosis. Echocardiogram: ordered on 01/27/21. DVT prophylaxis ordered?: SCDs. TEDs. Lovenox. ASSESSMENT AND PLAN: Hypertensive urgency -Patient had no end organ damage and had no evidence of intracranial hemorrhage, ischemic CVA, acute coronary syndrome, acute CHF, acute renal failure, hypertensive encephalopathy to suggest hypertensive emergency. -CT head was negative for intracranial hemorrhage. - Patient responded to Nicardipine gtt, admitted to ICU. - downgraded to med/surg tele as BP normalized - Rule out primary hyperaldosteronism and pheochromocytoma due to uncontrolled hypertension and hypokalemia - pending plasma renin activity, plasma renin concentration, plasma aldosterone. N - pending plasma catecholamines and metanephrines, urine VMA - reviewed Renal US with dopplers as above. No evidence for renal artery stenosis. - resume home med lisinopril Electrolyte abnormalities with hypokalemia and hypocalcemia -Repleted with potassium and calcium gluconate. -Ruling out primary hyperaldosteronism by checking plasma renin, aldosterone. Headache -Due to hypertensive urgency. No signs of intracranial hemorrhage or acute ischemic CVA on CT of the head. -flexeril prn for neck spasm -tramadol for pain prn q8h Low TSH -Normal T4. Check full thyroid profile to rule out hyperthyroidism. 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 No active suicidal or homicidal ideation impaired fasting glucose -CA1c 5.4 impaired mobility -Due to chronic right upper and lower extremity weakness from ruptured AVM chronic pain -Patient says he only takes tramadol as needed Chronic constipation -Bowel regimen VS, I&O, 24H, Fishbone Vital Signs/I&O Vital Signs Date Time Temp Pulse Resp B/P (MAP) Pulse Ox O2 Delivery O2 Flow Rate FiO2 01/27/21 12:07 128/60 01/27/21 12:00 98.8 86 18 100 Room Air I&O- Last 24 Hours up to 6 AM 01/27/21 06:00 Intake Total 667 ml Output Total 660 ml Balance 7 ml Laboratory Data 24H LABS Laboratory Tests 2 01/26/21 19:52: POC Glucose (Misc Panel) 122H, POC Sodium (Misc Panel) 140, POC Potassium (Misc Panel) 3.4L, POC Chloride (Misc Panel) 109, POC Total CO2 (Misc Panel) 19.0L, POC Blood Urea Nitrogen (Misc Panel 15, POC Ionized Calcium (Misc Panel) 4.0L, POC Creatinine (Misc Panel) 0.6, POC Hematocrit (Misc Panel) 34.0L 01/26/21 20:03: Immature Granulocyte % (Auto) 0.2, Neutrophils (%) (Auto) 76.3H, Lymphocytes (%) (Auto) 14.5L, Monocytes (%) (Auto) 6.5, Eosinophils (%) (Auto) 1.7, Basophils (%) (Auto) 0.8, Neutrophils # (Auto) 4.9, Lymphocytes # (Auto) 0.9L, Monocytes # (Auto) 0.4, Eosinophils # (Auto) 0.1, Basophils # (Auto) 0.1, Nucleated Red Blood Cells % (auto) 0.0, Erythrocyte Sedimentation Rate 12, Prothrombin Time 13.2, Prothromb Time International Ratio 0.98, Activated Partial Thromboplast Time 25.8, Anion Gap 7L, Glomerular Filtration Rate > 60.0, Calcium Level 5.6*L, Total Bilirubin 0.4, Direct Bilirubin 0.1, Aspartate Amino Transf (AST/SGOT) 12, Alanine Aminotransferase (ALT/SGPT) 27, Alkaline Phosphatase 51, Total Creatine Kinase 67, Creatine Kinase MB 1.1, Creatine Kinase MB Relative Index 1.64, Troponin I < 0.02, C-Reactive Protein, Quantitative 0.30, XW-Asg-S-Type Natriuretic Peptide 85, Total Protein 4.7L, Albumin 2.6L, Albumin/Globulin Ratio 1.2, Thyroid Stimulating Hormone (TSH) 0.337L, Free Thyroxine 1.01 01/26/21 20:44: Urine Color YELLOW, Urine Appearance CLEAR, Urine pH 8.0, Urine Specific [place] 1.027, Urine Protein 1+H, Urine Glucose (UA) NEGATIVE, Urine Ketones 1+H, Urine Blood NEGATIVE, Urine Nitrite NEGATIVE, Urine Bilirubin NEGATIVE, Urine Urobilinogen 0.2, Urine Leukocyte Esterase NEGATIVE, Urine WBC (Auto) 0, Urine RBC (Auto) 1, Urine Hyaline Casts (Auto) 0, Urine Bacteria (Auto) NEGATIVE, Urine Squamous Epithelial Cells 0, Urine Mucus (Auto) SMALL, Urine Sperm (Auto) , Urine Opiates Screen NEGATIVE, Urine Methadone Screen NEGATIVE, Urine Barbiturates Screen NEGATIVE, Urine Phencyclidine Screen NEGATIVE, Urine Amphetamines Screen NEGATIVE, Urine Benzodiazepines Screen NEGATIVE, Urine Cocaine Metabolite Screen NEGATIVE, Urine Cannabinoids Screen POSITIVEH 01/26/21 21:55: Anion Gap 5L, Glomerular Filtration Rate > 60.0, Calcium Level 8.7#L, Whole Blood Ionized Calcium 4.4L, Magnesium Level 1.9, Coronavirus (COVID-19)(PCR) NEGATIVE, Influenza Type A (RT-PCR) NEGATIVE, Influenza Type B (RT-PCR) NEGATI VE, Respiratory Syncytial Virus (PCR) NEGATIVE 01/27/21 04:36: Nucleated Red Blood Cells % (auto) 0.0, Anion Gap 6L, Glomerular Filtration Rate > 60.0, Estimated Mean Plasma Glucose 108, Hemoglobin A1c 5.4, Calcium Level 9.0, Whole Blood Ionized Calcium 4.5, Magnesium Level 2.4, Total Creatine Kinase 92, Creatine Kinase MB 1.5, Creatine Kinase MB Relative Index 1.63, Troponin I < 0.02, Triglycerides Level 631H, Total Cholesterol 336H, LDL Cholesterol , Non- HDL Cholesterol (LDL + VLDL) 281, Total HDL Cholesterol 55, Cholesterol/HDL Ratio 6.109H 01/27/21 09:15: 01/27/21 10:24: Lab Scanned Report Miscellaneous Lab CBC/BMP Laboratory Tests 01/26/21 20:03 01/26/21 21:55 01/27/21 04:36 GARRY NEWTON MD Jan 27, 2021 13:13
--- NOTE | 2021-01-27 17:10 | ECGEPIP ---
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
[2021-01-28 06:00] VITALS: BP 160/94
[2021-01-28 06:21] LABS: HEMATOCRIT 38.7 % (42.0-52.0); HEMOGLOBIN 12.6 g/dl (13.5-17.5); MEAN CORPUSCULAR HEMOGLOBIN 32.3 pg (27.0-33.0); MEAN CORPUSCULAR HGB CONC 32.6 g/dl (32.0-36.5); MEAN CORPUSCULAR VOLUME 99.2 fl (80.0-96.0); PLATELET COUNT, AUTOMATED 242 10^3/uL (150-450); WHITE BLOOD COUNT 6.3 10^3/uL (4.0-10.0)
[2021-01-28 06:43] LABS: BLOOD UREA NITROGEN 28 MG/DL (7-18); CALCIUM LEVEL 8.5 MG/DL (8.8-10.2); CARBON DIOXIDE LEVEL 31 MEQ/L (21-32); CHLORIDE LEVEL 105 MEQ/L (98-107); GLOMERULAR FILTRATION RATE > 60.0 (>49); GLUCOSE, FASTING 94 MG/DL (70-100); POTASSIUM SERUM 4.1 MEQ/L (3.5-5.1); SODIUM LEVEL 139 MEQ/L (136-145)
[2021-01-28] MEDS ORDERED: VENLAFAXINE 37.5 MG TAB PO SCH (09:00)
[2021-01-28] MEDS: SODIUM CHLORIDE NASAL 0.65% SPRAY BTL (OCEAN) SCH ×2 (09:00→12:35)
[2021-01-28] MEDS ORDERED: amLODIPine 5 MG TAB PO SCH (09:00)
[2021-01-28] MEDS: ASPIRIN 81 MG ENTERIC TAB PO SCH (09:05)
[2021-01-28] MEDS: ATORVASTATIN 20 MG TAB PO SCH (09:06)
[2021-01-28] MEDS: PROPRANOLOL 80 MG LA CAP PO SCH (09:06)
[2021-01-28] MEDS: MULTIVITAMINS/MINERALS THERAP 1 TAB PO SCH (09:07)
[2021-01-28] MEDS: OMEPRAZOLE 20 MG CAP PO SCH (09:07)
[2021-01-28] MEDS ORDERED: PROP80CA PO (09:32)
[2021-01-28] MEDS ORDERED: LISI20TA33 PO (09:32)
[2021-01-28] MEDS ORDERED: ACET1TAB55 PO (09:32)
[2021-01-28] MEDS ORDERED: AMLO1TAB24 PO (09:32)
--- NOTE | 2021-01-28 09:41 | DS.PDOC ---
Discharge Summary General Date of Admission Jan 26, 2021 at 19:44 Date of Discharge 01/28/2021 Discharge Summary PROCEDURES PERFORMED DURING STAY: [None]. ADMITTING DIAGNOSES: hypertensive urgency hypokalemia hypocalcemia headache hx of ruptured AVM s/p L parietal craniotomy with chronic RUE and RLE weakness Hx of L carotid artery stenosis s/p stenting 2009 GERD HLD Vit D deficiency B12 deficiency Depression Impaired fasting glucose Chronic pain Chronic constipation DISCHARGE DIAGNOSES: hypertensive urgency hypokalemia hypocalcemia headache hx of ruptured AVM s/p L parietal craniotomy with chronic RUE and RLE weakness Hx of L carotid artery stenosis s/p stenting 2009 GERD HLD Vit D deficiency B12 deficiency Depression Impaired fasting glucose Chronic pain Chronic constipation COMPLICATIONS/CHIEF COMPLAINT: Hypertensive Emergency. HISTORY OF PRESENT ILLNESS: 60-year-old male with past medical history significant for ruptured arteriovenous malformation status post left parietal craniotomy on 02/18/1994, with chronic right upper and lower extremity weakness hypertension, left carotid artery stenosis status post stent March 2010, gastroesophageal reflux disease, hyperlipidemia, tubular adenoma, erectile dysfunction, vitamin D and B12 deficiency, depression, impaired fasting glucose, impaired mobility, chronic pain and constipation presents to the emergency room with acute onset of generalized headache at 4 PM today, which she thought was a sinus headache. Patient admits to dietary indiscretion with increased salt intake at home, but denies chest pain, pressure, confusion, chest tightness, chest heaviness, lightheadedness, dizziness, palpitations, diaphoresis, shortness of breath, changes in vision, nausea, vomiting, or worsening upper or lower extremity weakness or paresthesias. Patient denies any fever, chills, rhinorrhea, or recent upper respiratory infection. In the emergency room he was found to have blood pressure of 236/116, hypokalemia, hypocalcemia, and metabolic acidosis. CT of the head was negative for intracranial hemorrhage. CTA of the neck was negative. Chest x-ray had no pulmonary edema or widened mediastinum. EKG showed sinus rhythm, ventricular rate of [address]-T wave changes. Troponin was negative. Patient denies any recreational drug use, noncompliance with blood pressure medications, or history of hyperaldosteronism. He also complains of neck spasms which he has at home, usually alleviated with tramadol as needed. Hospitalist was asked to admit for hypertensive urgency with no end organ damage and electrolyte abnormalities. HOSPITAL COURSE: Hypertensive urgency -Patient had no end organ damage and had no evidence of intracranial hemorrhage, ischemic CVA, acute coronary syndrome, acute CHF, acute renal failure, hypertensive encephalopathy to suggest hypertensive emergency. -CT head was negative for intracranial hemorrhage. - Patient responded to Nicardipine gtt, admitted to ICU. - downgraded to med/surg tele as BP normalized - Rule out primary hyperaldosteronism and pheochromocytoma due to uncontrolled hypertension and hypokalemia - pending plasma renin activity, plasma renin concentration, plasma aldosterone. N - pending plasma catecholamines and metanephrines, urine VMA - 2D echo completed, report to be followed up as outpatient. - reviewed Renal US with dopplers as above. No evidence for renal artery stenosis. - resume home med lisinopril. Added amlodipine 5 mg daily. C/w propranolol. Electrolyte abnormalities with hypokalemia and hypocalcemia -Repleted with potassium and calcium gluconate. -Ruling out primary hyperaldosteronism by checking plasma renin, aldosterone. Headache -Due to hypertensive urgency. No signs of intracranial hemorrhage or acute ischemic CVA on CT of the head. -flexeril prn for neck spasm -tramadol for pain prn q8h Low TSH -Normal T4. Check full thyroid profile to rule out hyperthyroidism. 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 No active suicidal or homicidal ideation impaired fasting glucose -CA1c 5.4 impaired mobility -Due to chronic right upper and lower extremity weakness from ruptured AVM chronic pain -Patient says he only takes tramadol as needed Chronic constipation -Bowel regimen DISCHARGE MEDICATIONS: Please see below. ALLERGIES: Please see below. PHYSICAL EXAMINATION ON DISCHARGE: VITAL SIGNS: please see below General: NAD, comfortable HEENT: PERRLA, EOMI, sclerae clear Neck: supple, normal ROM, no JVD Respiratory: lungs CTAB, no wheeze, no rales, no crackles CVS: RRR, normal S1, S2, no murmurs Abdo: soft, no masses, no hepatosplenomegaly, BS+, no rebound tenderness Extremities: no edema, pulses 2+ MSK: no joint deformities, normal ROM Neuro: no focal neuro deficits, moving all 4 extremities, CN2-12 intact. 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 Psych: calm, cooperative, AAO x 3. LABORATORY DATA: Please see below. IMAGING: Renal Doppler Flow (01/27/21): FINDINGS: The bilateral kidneys demonstrate normal contour, size, echogenicity, and reniform shape. Mildly increased central sinus fat suggests chronic renal disease. Right kidney measures 10.2 x 5.0 x 4.2 cm. Left kidney measures 10.3 x 4.6 x 5.6 cm and includes incidental column of [place]. Bladder is under distended. COLOR DOPPLER EVALUATION . Peak aortic velocity: 120 centimeters/second RIGHT KIDNEY Renal arterial velocity: 144 centimeters/second Renal-aortic ratio: 1.2 Intrarenal resistive indices: 0.62-0.68 Intrarenal acceleration times: 0.040-0.042 LEFT KIDNEY Renal arterial velocity: 124 centimeters/second Renal-aortic ratio: 1.0 Intrarenal resistive indices: 0.64-0.74 Intrarenal acceleration times: 0.022-0.044 IMPRESSION: 1. Kidneys appear normal. 2. Doppler interegation without sonographic evidence for renal arterial stenosis. Ct angio head (01/26/21): Unremarkable CT Angiogram of the head and tangirnaq of [place]. No intracranial large vessel occlusive or high-grade stenotic lesion and no evidence of intracranial aneurysm Head wo contrast (01/26/21): IMPRESSION: 1. No acute or concerning focal intracranial abnormality. No evidence of subarachnoid hemorrhage. 2. Postsurgical changes of right parietal craniotomy and probable prior mass resection, with volume loss CTA neck (01/26/21): FINDINGS: Right common carotid, cervical ICA and proximal ECA demonstrate contrast opacification with no occlusion, flow limiting stenosis, or intimal flap to suggest dissection. Mild right carotid bulb calcified plaque with negligible hemodynamic effect Left common carotid, cervical ICA and proximal ECA demonstrate contrast opacification, with no occlusion, flow limiting stenosis, or intimal flap to suggest dissection. Mild left carotid bulb calcified eccentric plaque with milder than 50% luminal caliber narrowing. Normal left ICA Vertebral arteries demonstrate normal course to the level of the skull base and show no occlusion, flow limiting stenosis or dissection. No flow limiting stenosis or anomaly of the great vessel origins. No concerning asymmetric neck soft tissue abnormality. Multi-level cervical degenerative disc and articular pillar arthropathy is present. IMPRESSION: Mild calcified bilateral carotid bulb atherosclerotic plaque with certainly milder than 50% luminal caliber narrowing, negligible hemodynamic effect bilaterally. CXR (01/26/21) No acute or focal cardiopulmonary process. PROGNOSIS: good ACTIVITY: [As tolerated]. DIET: 2g sodium restricted DISCHARGE PLAN: dc home with pcp f/u and nephrology referral. DISPOSITION: home DISCHARGE INSTRUCTIONS: . Please follow-up with your primary care doctor within 3-5 days . Please follow-up with nephrology within 1-2 weeks . Please taking medications as prescribed. . If you develop bleeding, chest pain, shortness of breath, seizures, nausea, fevers, or otherwise worsening of your symptoms, please call 911 or return to the nearest emergency room ITEMS TO FOLLOWUP ON ON OUTPATIENT: 1. lab work pending for primary hyperaldosteronism, ie renin and aldosterone levels 2. lab work pending for pheochromocytoma, ie urine VMA, plasma catecholamines and metanephrines. May require 24 hour urine collection for afore mentioned labs if screening tests are positive. 3. Follow up 2D echo report. DISCHARGE CONDITION: Stable TIME SPENT ON DISCHARGE: 35 minutes Vital Signs/I&Os Vital Signs Date Time Temp Pulse Resp B/P (MAP) Pulse Ox O2 Delivery O2 Flow Rate FiO2 01/28/21 09:06 77 169/78 01/28/21 06:00 97.6 16 96 Room Air I&O- Last 24 Hours up to 6 AM 01/28/21 06:00 Intake Total 900 ml Output Total 750 ml Balance 150 ml Laboratory Data Labs 24H Laboratory Tests 2 01/27/21 10:24: Lab Scanned Report Miscellaneous Lab 01/27/21 14:59: 01/28/21 05:49: Nucleated Red Blood Cells % (auto) 0.0, Anion Gap 3L, Glomerular Filtration Rate > 60.0, Calcium Level 8.5L CBC/BMP Laboratory Tests 01/28/21 05:49 Discharge Medications Scheduled Amlodipine Besylate (Amlodipine Besylate) 5 Mg Tablet, 5 MG PO DAILY Aspirin (Aspirin EC) 81 Mg Tablet.dr, 81 MG PO DAILY, (Reported) Atorvastatin Calcium (Atorvastatin Calcium) 80 Mg Tablet, 80 MG PO DAILY, (Reported) Ergocalciferol (Vitamin D2) (Vitamin D2) 50,000 Units Cap, 50,000 UNITS PO QWEEK, (Reported) WEDNESDAYS Lisinopril (Lisinopril) 20 Mg Tablet, 20 MG PO DAILY Multivitamins (Thera M Plus Tablet) 1 Each Tablet, 1 TAB PO DAILY, (Reported) Omeprazole (Omeprazole) 20 Mg Capsule.dr, 20 MG PO BID, (Reported) Propranolol HCl (Propranolol HCl ER) 80 Mg Cap.sa.24h, 80 MG PO DAILY Venlafaxine HCl (Venlafaxine HCl) 75 Mg Tablet, 75 MG PO DAILY, (Reported) Scheduled PRN Acetaminophen (Acetaminophen) 325 Mg Tablet, 650 MG PO Q4HP PRN for PAIN OR FEVER Sildenafil Citrate (Viagra) 100 Mg Tablet, 100 MG PO ASDIRECTED PRN for ERECTILE DYSFUNCTION, (Reported) Tramadol HCl/Acetaminophen (Ultracet Tablet) 1 Each Tablet, 1 TAB PO DAILY PRN for PAIN, (Reported) Allergies Coded Allergies: phenytoin (Verified Allergy, Unknown, rash, 04/08/19) GARRY NEWTON MD Jan 28, 2021 09:41
[2021-01-28 11:35] VITALS: BP 161/83
--- NOTE | 2021-01-28 11:38 | ECHO ---
DATE OF PROCEDURE: 01/27/2021 Age: 60 Gender: Male Height: 185 cm Weight: 90 kg REFERRING PHYSICIAN: Dr. Thong Brandon. INDICATION: Systemic hypertension. MEASUREMENTS: 2D Measurements: Aortic root 3.7 cm Left atrium 3.3 cm Intraventricular septum 1.56 cm Posterior wall 1.24 cm Left ventricle diastole 4.7 cm Aortic annulus 2.4 cm Inferior vena cava 1.3 cm (more than 50% respiratory variation) Doppler Measurements: No aortic stenosis No aortic regurgitation Aortic valve velocity 133 cm/s LVOT velocity 98.6 cm/s LVOT VTI 19.0 cm No mitral regurgitation No mitral stenosis Mitral E velocity 81.0 cm/s Mitral A velocity 106 cm/s Mitral deceleration time 211 msec No tricuspid regurgitation No pulmonic regurgitation Pulmonary artery acceleration time 166 msec consistent with no pulmonary hypertension MITRAL ANNULAR TISSUE DOPPLER E prime septal 5.7 cm/s, E prime lateral 7.1 cm/s DESCRIPTION: Rhythm was sinus. Image quality was fair. No pericardial effusion. This was a 2D, M-mode, color flow Doppler, and pulsed wave Doppler examination including mitral annular tissue Doppler. CONCLUSIONS: 1. Mild concentric left ventricle hypertrophy. Hyperdynamic LV systolic function. LVEF 70-75% by visual estimate. No regional LV wall motion abnormalities. Grade 1 LV diastolic dysfunction (impaired relaxation filling pattern). 2. Normal right ventricle size with hyperdynamic RV systolic function. Suggestive of pulmonary artery systolic pressure not to be elevated. Suggestive of normal CVP. 3. Mild aortic valve sclerosis of a 3-cusp aortic valve. No aortic regurgitation. 4. Otherwise normal appearing echocardiogram Doppler findings. [facility]
[2021-01-28] MEDS ORDERED: **hydrALAZINE** 10 MG TAB PO ONE (12:00)
[2021-01-28 12:40] VITALS: BP 110/66
[2021-01-28] MEDS ORDERED: **hydrALAZINE** 10 MG TAB PO SCH (22:00)
== END 2021-01-28 15:23 | disposition home or self-care (01) ==
LOC: M ED 19:43 → M ED INP 19:44 → ENRESERV 22:55 → M ICU 23:38 → M MSPAV 01-27 15:03
PROVIDERS: ADMIT General Practice; ATTEND Family Medicine
DX: I16.0 Hypertensive urgency (principal); E78.6 Lipoprotein deficiency; E83.51 Hypocalcemia; R51.9 Headache, unspecified; K21.9 Gastro-esophageal reflux disease without esophagitis; E78.49 Other hyperlipidemia; E55.9 Vitamin D deficiency, unspecified; D51.9 Vitamin B12 deficiency anemia, unspecified; F32.9 Major depressive disorder, single episode, unspecified; R73.01 Impaired fasting glucose; G89.29 Other chronic pain; K59.00 Constipation, unspecified; R53.1 Weakness; Z98.890 Other specified postprocedural states; Z95.828 Presence of other vascular implants and grafts; Z87.891 Personal history of nicotine dependence; Z79.899 Other long term (current) drug therapy
CPT/HCPCS: 36415; 70450; 70496; 70498; 71045; 76775; 80047; 80048; 80061; 80076; 80307; 81001; 82088; 82330; 82383; 82550; 82553; 83036; 83735; 83835; 83880; 84244; 84439; 84443; 84484; 84585; 85025; 85027; 85610; 85652; 85730; 86140; 87631; 93005; 93041; 93306; 93975; 94760; 96361; 96365; 96366; 96375; 96376; 97161; 99285; J0360; J0610; J2405; J3475; Q9967

== ENCOUNTER → 2021-05-04 | Outpatient (CLI) | payer OTHER ==
[~2021-05-04] MED LIST changes: +ACET1TAB55 PO; +AMLO1TAB24 PO; +ASPI-161 PO; +ATOR80TA59 PO; +OMEP1CAP73 PO; +VITA50005 PO; +VITMTA PO
[2021-05-04 10:28] LABS: BASO # 0.1 10^3/uL (0.0-0.2); BASO % 1.4 % (0.0-1.0); EOS # 0.2 10^3/uL (0.0-0.5); EOS % 4.4 % (0.0-3.0); HEMATOCRIT 41.3 % (42.0-52.0); HEMOGLOBIN 13.4 g/dl (13.5-17.5); LYMPH # 1.5 10^3/uL (1.5-5.0); LYMPH % 30.3 % (24.0-44.0); MEAN CORPUSCULAR HEMOGLOBIN 32.4 pg (27.0-33.0); MEAN CORPUSCULAR HGB CONC 32.4 g/dl (32.0-36.5); MONO # 0.6 10^3/uL (0.0-0.8); MONO % 12.9 % (2.0-8.0); NEUTROPHILS # 2.5 10^3/uL (1.5-8.5); NEUTROPHILS % 50.6 % (36.0-66.0); PLATELET COUNT, AUTOMATED 284 10^3/uL (150-450); RED BLOOD COUNT 4.13 10^6/uL (4.30-6.10)
[2021-05-04 11:26] LABS: ALBUMIN 4.1 GM/DL (3.2-5.2); ALT/SGPT 34 U/L (12-78); BILIRUBIN,TOTAL 0.5 MG/DL (0.2-1.0); BLOOD UREA NITROGEN 23 MG/DL (7-18); CARBON DIOXIDE LEVEL 28 MEQ/L (21-32); CHLORIDE LEVEL 105 MEQ/L (98-107); CHOLESTEROL LEVEL 192 MG/DL (<200); CHOLESTEROL RISK RATIO 3.254 (<5); CREATININE FOR GFR 0.94 MG/DL (0.70-1.30); FREE T4 0.96 NG/DL (0.76-1.46); GLOMERULAR FILTRATION RATE > 60.0 (>49); GLUCOSE, FASTING 95 MG/DL (70-100); HDL CHOLESTEROL 59 MG/DL (>40); LDL CHOLESTEROL 93 MG/DL (<100); MAGNESIUM LEVEL 2.4 MG/DL (1.8-2.4); NON-HDL-C 133 MG/DL; POTASSIUM SERUM 4.2 MEQ/L (3.5-5.1); SODIUM LEVEL 139 MEQ/L (136-145); THYROID STIMULATING HORMONE 0.733 uIU/ML (0.358-3.740); TOTAL PROTEIN 7.4 GM/DL (6.4-8.2); TRIGLYCERIDES LEVEL 200 MG/DL (<150)
[2021-05-04 11:28] LABS: TOTAL 25(OH) VITAMIN D 55.2 NG/ML (30.0-100.0)
[2021-05-04 13:20] LABS: HEMOGLOBIN A1c 5.2 %
== END ==
LOC: M WUC 08:17
PROVIDERS: ATTEND Nurse Practitioner Family
DX: I10 Essential (primary) hypertension (principal); E78.5 Hyperlipidemia, unspecified; R73.01 Impaired fasting glucose; E55.9 Vitamin D deficiency, unspecified

== ENCOUNTER → 2021-05-10 | Outpatient (CLI) | payer OTHER ==
--- NOTE | 2021-05-10 10:58 | REPPI ---
INDICATION: M25.551 RIGHT HIP PAIN COMPARISON: None. TECHNIQUE: AP and frog-lateral views of the right hip FINDINGS: Generalized age-related changes include subtle increased sclerosis to the acetabulum with minimal joint space narrowing. No further overt osteoarthritic or significant degenerative changes are appreciated. No evidence for acute or healed injury. Surrounding soft tissues are normal. IMPRESSION: Mild generalized age-related changes. <Electronically signed by Juan Daniel Mehta > 05/10/21 1710
== END ==
LOC: M PLAIMG 10:03
PROVIDERS: ATTEND Nurse Practitioner Family
DX: M89.8X8 Other specified disorders of bone, other site (principal)

== ENCOUNTER → 2021-05-18 | Outpatient (CLI) | payer OTHER ==
[~2021-05-18] MED LIST changes: +ERGO500029 PO; +GASTROGRAFIN SOLUTION 30ML (Q9963) As Ordered ONE; +ISOVUE-370 76% 100ML VIAL As Ordered ONE; -VITA50005 PO
--- NOTE | 2021-05-18 17:52 | REP ---
INDICATION: ABN LABS COMPARISON: None. TECHNIQUE: CT Scan of the abdomen and pelvis was performed with intravenous administration of 100 cc of Isovue 370, without oral contrast. Sagittal and coronal reconstruction images are performed. FINDINGS: Lung bases: Unremarkable. Liver: Normal Gallbladder: Unremarkable. Spleen: Normal. Adrenals: Normal. Pancreas: Normal. Kidneys: Normal. Small and large bowel: Unremarkable. Free fluid: None. Abdominal aorta: No aneurysm or dissection. Adenopathy: None. Appendix: Not inflamed. Osseous structures: There are degenerative changes of the spine without compression deformity. Pelvis: No mass. IMPRESSION: 9 <Electronically signed by Nicholas Corona > 05/18/21 [id number]
== END ==
LOC: M RAD 15:29
PROVIDERS: ATTEND Nurse Practitioner Family
DX: R89.9 Unspecified abnormal finding in specimens from other organs, systems and tissues (principal)
CPT/HCPCS: 74177; Q9963; Q9967

== ENCOUNTER → 2021-11-04 | Outpatient (CLI) | payer OTHER ==
[~2021-11-04] MED LIST changes: -GASTROGRAFIN SOLUTION 30ML (Q9963) As Ordered ONE; -ISOVUE-370 76% 100ML VIAL As Ordered ONE
[2021-11-04 10:12] LABS: BASO # 0.1 10^3/uL (0.0-0.2); EOS # 0.3 10^3/uL (0.0-0.5); EOS % 4.5 % (0.0-3.0); HEMATOCRIT 40.3 % (42.0-52.0); HEMOGLOBIN 13.4 g/dl (13.5-17.5); LYMPH # 1.8 10^3/uL (1.5-5.0); LYMPH % 30.1 % (24.0-44.0); MEAN CORPUSCULAR HEMOGLOBIN 32.9 pg (27.0-33.0); MEAN CORPUSCULAR HGB CONC 33.3 g/dl (32.0-36.5); MONO # 0.7 10^3/uL (0.0-0.8); MONO % 11.5 % (2.0-8.0); NEUTROPHILS % 52.4 % (36.0-66.0); PLATELET COUNT, AUTOMATED 333 10^3/uL (150-450); RED BLOOD COUNT 4.07 10^6/uL (4.30-6.10); WHITE BLOOD COUNT 5.8 10^3/uL (4.0-10.0)
[2021-11-04 10:48] LABS: ALBUMIN 3.7 GM/DL (3.2-5.2); ALT/SGPT 33 U/L (12-78); BILIRUBIN,TOTAL 0.3 MG/DL (0.2-1.0); BLOOD UREA NITROGEN 18 MG/DL (7-18); CALCIUM LEVEL 9.1 MG/DL (8.8-10.2); CARBON DIOXIDE LEVEL 33 MEQ/L (21-32); CHLORIDE LEVEL 103 MEQ/L (98-107); CHOLESTEROL LEVEL 301 MG/DL (<200); CHOLESTEROL RISK RATIO 6.404 (<5); GLOMERULAR FILTRATION RATE > 60.0 (>49); GLUCOSE, FASTING 104 MG/DL (70-100); HDL CHOLESTEROL 47 MG/DL (>40); LDL CHOLESTEROL 190 MG/DL (<100); NON-HDL-C 254 MG/DL; POTASSIUM SERUM 4.5 MEQ/L (3.5-5.1); SODIUM LEVEL 139 MEQ/L (136-145); TOTAL PROTEIN 7.3 GM/DL (6.4-8.2); TRIGLYCERIDES LEVEL 318 MG/DL (<150)
[2021-11-04 11:14] LABS: VITAMIN B12 LEVEL 804 PG/ML (247-911)
[2021-11-04 14:06] LABS: HEMOGLOBIN A1c 5.4 %
== END ==
LOC: M WUC 08:05
PROVIDERS: ATTEND Nurse Practitioner Family
DX: I10 Essential (primary) hypertension (principal); E55.9 Vitamin D deficiency, unspecified; E53.8 Deficiency of other specified B group vitamins; R73.01 Impaired fasting glucose; E78.5 Hyperlipidemia, unspecified; D75.89 Other specified diseases of blood and blood-forming organs

== ENCOUNTER → 2022-04-22 | Outpatient (CLI) | payer OTHER ==
[~2022-04-22] MED LIST changes: +OMEP-173 PO; -OMEP-218 PO; +ULTR1TAB PO; -ULTR37.54 PO
== END ==
LOC: M PLARAD 12:58
PROVIDERS: ATTEND Physician Assistant Surgical
DX: M47.816 Spondylosis without myelopathy or radiculopathy, lumbar region (principal); M70.61 Trochanteric bursitis, right hip; M54.50 Low back pain, unspecified

== ENCOUNTER → 2022-06-07 | Outpatient (REF) | payer OTHER ==
[2022-06-07 09:47] LABS: BASO # 0.1 10^3/uL (0.0-0.2); BASO % 1.1 % (0.0-1.0); EOS # 0.3 10^3/uL (0.0-0.5); EOS % 4.3 % (0.0-3.0); HEMATOCRIT 37.9 % (42.0-52.0); HEMOGLOBIN 12.6 g/dl (13.5-17.5); LYMPH # 1.6 10^3/uL (1.5-5.0); LYMPH % 25.1 % (24.0-44.0); MEAN CORPUSCULAR HEMOGLOBIN 32.3 pg (27.0-33.0); MEAN CORPUSCULAR HGB CONC 33.2 g/dl (32.0-36.5); MEAN CORPUSCULAR VOLUME 97.2 fl (80.0-96.0); MONO # 0.7 10^3/uL (0.0-0.8); MONO % 10.2 % (2.0-8.0); NEUTROPHILS # 3.8 10^3/uL (1.5-8.5); NEUTROPHILS % 59.1 % (36.0-66.0); PLATELET COUNT, AUTOMATED 286 10^3/uL (150-450); WHITE BLOOD COUNT 6.5 10^3/uL (4.0-10.0)
[2022-06-07 10:46] LABS: ALT/SGPT 41 U/L (12-78); BILIRUBIN,TOTAL 0.5 MG/DL (0.2-1.0); BLOOD UREA NITROGEN 20 MG/DL (7-18); CALCIUM LEVEL 9.4 MG/DL (8.8-10.2); CARBON DIOXIDE LEVEL 31 MEQ/L (21-32); CHLORIDE LEVEL 105 MEQ/L (98-107); CHOLESTEROL LEVEL 191 MG/DL (<200); CHOLESTEROL RISK RATIO 3.237 (<5); CREATININE FOR GFR 1.17 MG/DL (0.70-1.30); GLOMERULAR FILTRATION RATE > 60.0 (>49); GLUCOSE, FASTING 92 MG/DL (70-100); HDL CHOLESTEROL 59 MG/DL (>40); LDL CHOLESTEROL 71 MG/DL (<100); NON-HDL-C 132 MG/DL; POTASSIUM SERUM 4.8 MEQ/L (3.5-5.1); SODIUM LEVEL 138 MEQ/L (136-145); TOTAL PROTEIN 7.6 GM/DL (6.4-8.2); TRIGLYCERIDES LEVEL 304 MG/DL (<150)
[2022-06-07 11:53] LABS: HEMOGLOBIN A1c 5.5 %
== END ==
LOC: M WUC 08:39
PROVIDERS: ATTEND Nurse Practitioner Family
DX: I10 Essential (primary) hypertension (principal); E55.9 Vitamin D deficiency, unspecified; E78.5 Hyperlipidemia, unspecified; R73.01 Impaired fasting glucose

== ENCOUNTER → 2022-06-14 | Outpatient (CLI) | payer OTHER ==
[2022-06-14 12:55] LABS: PLATELET COUNT, AUTOMATED 324 10^3/uL (150-450)
[2022-06-14 13:04] LABS: INR 0.86; PROTHROMBIN TIME 12.1 SECONDS (12.7-14.5)
[2022-06-14 13:05] LABS: PARTIAL THROMBOPLASTIN TIME 28.8 SECONDS (25.9-37.0)
== END ==
LOC: M WUC 08:44
PROVIDERS: ATTEND Physician Assistant Surgical
DX: M47.896 Other spondylosis, lumbar region (principal)

== ENCOUNTER → 2022-11-08 | Outpatient (CLI) | payer OTHER ==
[2022-11-08 14:10] LABS: BASO # 0.1 10^3/uL (0.0-0.2); BASO % 0.7 % (0.0-1.0); EOS # 0.3 10^3/uL (0.0-0.5); EOS % 2.8 % (0.0-3.0); HEMATOCRIT 41.3 % (42.0-52.0); HEMOGLOBIN 13.5 g/dl (13.5-17.5); LYMPH # 1.4 10^3/uL (1.5-5.0); LYMPH % 14.5 % (24.0-44.0); MEAN CORPUSCULAR HEMOGLOBIN 32.2 pg (27.0-33.0); MEAN CORPUSCULAR HGB CONC 32.7 g/dl (32.0-36.5); MEAN CORPUSCULAR VOLUME 98.6 fl (80.0-96.0); MONO # 0.9 10^3/uL (0.0-0.8); MONO % 9.1 % (2.0-8.0); NEUTROPHILS # 6.8 10^3/uL (1.5-8.5); NEUTROPHILS % 72.7 % (36.0-66.0); PLATELET COUNT, AUTOMATED 312 10^3/uL (150-450); RED BLOOD COUNT 4.19 10^6/uL (4.30-6.10); WHITE BLOOD COUNT 9.4 10^3/uL (4.0-10.0)
[2022-11-08 14:38] LABS: LIPASE 78 U/L (12-53)
[2022-11-08 14:40] LABS: ALBUMIN 4.1 G/DL (3.2-5.2); ALKALINE PHOSPHATASE 70 U/L (46-116); ALT/SGPT 28 U/L (7.0-40); AST/SGOT 21 U/L (<34); BILIRUBIN,TOTAL 0.6 MG/DL (0.3-1.2); BLOOD UREA NITROGEN 18 MG/DL (9-23); CALCIUM LEVEL 9.4 MG/DL (8.3-10.6); CARBON DIOXIDE LEVEL 30 MMOL/L (20-31); CHLORIDE LEVEL 101 MMOL/L (98-107); CHOLESTEROL LEVEL 174 MG/DL (<200); CHOLESTEROL RISK RATIO 3.07 (<5); CREATININE FOR GFR 0.95 MG/DL (0.70-1.30); GLOMERULAR FILTRATION RATE > 60.0 (>49); GLUCOSE, FASTING 93 MG/DL (74-106); HDL CHOLESTEROL 56.5 MG/DL (>40); LDL CHOLESTEROL 83.5 MG/DL (<100); NON-HDL-C 118 MG/DL; POTASSIUM SERUM 4.6 MMOL/L (3.5-5.1); SODIUM LEVEL 137 MMOL/L (136-145); TOTAL PROTEIN 7.6 G/DL (5.7-8.2); TRIGLYCERIDES LEVEL 170 MG/DL (<150)
[2022-11-08 14:41] LABS: TOTAL 25(OH) VITAMIN D 51.6 NG/ML (20.0-100.0); VITAMIN B12 LEVEL 637 PG/ML (211-911)
[2022-11-08 17:51] LABS: HEMOGLOBIN A1c 5.2 % (4.0-6.0)
== END ==
LOC: M PLALAB 10:37
PROVIDERS: ATTEND Nurse Practitioner Family
DX: E55.9 Vitamin D deficiency, unspecified (principal); I10 Essential (primary) hypertension; E78.5 Hyperlipidemia, unspecified; E53.8 Deficiency of other specified B group vitamins; R73.01 Impaired fasting glucose; R10.9 Unspecified abdominal pain

== ENCOUNTER → 2022-12-02 | Outpatient (CLI) | payer OTHER | LOC: M WHC 08:29 | PROVIDERS: ATTEND Nurse Practitioner Family | DX: K76.0 Fatty (change of) liver, not elsewhere classified (principal) ==

== ENCOUNTER → 2022-12-28 | Outpatient (CLI) | payer OTHER ==
[~2022-12-28] MED LIST changes: +GASTROGRAFIN SOLUTION 30ML As Ordered ONE; +ISOVUE-370 76% 100ML VIAL As Ordered ONE
== END ==
LOC: M RAD 08:40
PROVIDERS: ATTEND Nurse Practitioner Family
DX: K57.30 Diverticulosis of large intestine without perforation or abscess without bleeding (principal)

== ENCOUNTER → 2023-01-09 | Outpatient (REF) | payer OTHER ==
[~2023-01-09] MED LIST changes: -GASTROGRAFIN SOLUTION 30ML As Ordered ONE; -ISOVUE-370 76% 100ML VIAL As Ordered ONE
== END ==
LOC: M LAB REF 17:24
PROVIDERS: ATTEND Physician Assistant
DX: J02.9 Acute pharyngitis, unspecified (principal)

== ENCOUNTER → 2023-05-03 | Outpatient (CLI) | payer OTHER ==
[2023-05-03 10:29] LABS: BASO # 0.1 10^3/uL (0.0-0.2); BASO % 1.3 % (0.0-1.0); EOS # 0.3 10^3/uL (0.0-0.5); EOS % 6.3 % (0.0-3.0); HEMATOCRIT 41.1 % (42.0-52.0); HEMOGLOBIN 13.4 g/dl (13.5-17.5); LYMPH # 1.5 10^3/uL (1.5-5.0); LYMPH % 27.4 % (24.0-44.0); MEAN CORPUSCULAR HEMOGLOBIN 31.9 pg (27.0-33.0); MEAN CORPUSCULAR HGB CONC 32.6 g/dl (32.0-36.5); MEAN CORPUSCULAR VOLUME 97.9 fl (80.0-96.0); MONO # 0.6 10^3/uL (0.0-0.8); MONO % 10.6 % (2.0-8.0); NEUTROPHILS # 2.9 10^3/uL (1.5-8.5); NEUTROPHILS % 54.4 % (36.0-66.0); PLATELET COUNT, AUTOMATED 292 10^3/uL (150-450); WHITE BLOOD COUNT 5.4 10^3/uL (4.0-10.0)
[2023-05-03 10:56] LABS: TOTAL 25(OH) VITAMIN D 63.6 NG/ML (20.0-100.0); VITAMIN B12 LEVEL 317 PG/ML (211-911)
[2023-05-03 10:58] LABS: ALBUMIN 4.1 G/DL (3.2-5.2); ALKALINE PHOSPHATASE 67 U/L (46-116); ALT/SGPT 18 U/L (7.0-40); AST/SGOT 12 U/L (<34); BILIRUBIN,TOTAL 0.4 MG/DL (0.3-1.2); BLOOD UREA NITROGEN 21 MG/DL (9-23); CALCIUM LEVEL 8.7 MG/DL (8.3-10.6); CARBON DIOXIDE LEVEL 30 MMOL/L (20-31); CHLORIDE LEVEL 106 MMOL/L (98-107); CHOLESTEROL LEVEL 155 MG/DL (<200); CHOLESTEROL RISK RATIO 3.14 (<5); CREATININE FOR GFR 0.88 MG/DL (0.70-1.30); GLOMERULAR FILTRATION RATE > 60.0 (>49); GLUCOSE, FASTING 108 MG/DL (74-106); HDL CHOLESTEROL 49.3 MG/DL (>40); LDL CHOLESTEROL 87.9 MG/DL (<100); NON-HDL-C 105.7 MG/DL; POTASSIUM SERUM 4.6 MMOL/L (3.5-5.1); SODIUM LEVEL 143 MMOL/L (136-145); TOTAL PROTEIN 6.6 G/DL (5.7-8.2); TRIGLYCERIDES LEVEL 89 MG/DL (<150)
[2023-05-03 11:10] LABS: HEMOGLOBIN A1c 5.6 % (4.0-6.0)
== END ==
LOC: M PLALAB 08:13
PROVIDERS: ATTEND Nurse Practitioner Family
DX: E78.5 Hyperlipidemia, unspecified (principal); I10 Essential (primary) hypertension; E55.9 Vitamin D deficiency, unspecified; E53.8 Deficiency of other specified B group vitamins; R73.01 Impaired fasting glucose; Z12.5 Encounter for screening for malignant neoplasm of prostate
CPT/HCPCS: 36415; 80053; 80061; 82306; 82607; 83036; 85025; G0103

== ENCOUNTER → 2023-05-24 | Outpatient (CLI) | payer OTHER ==
[~2023-05-24] MED LIST changes: +E-Z-GAS II EFFERVESCENT PACKET (SODIUM BICARB./CITRIC ACID/SIMETHICONE) As Ordered ONE; +E-Z-HD 98% w/w 340GM SUSP BTL As Ordered ONE; +E-Z-PAQUE 96% w/w SUSP 176GM BTL As Ordered ONE
== END ==
LOC: M RAD 08:48
PROVIDERS: ATTEND Nurse Practitioner Family
DX: R10.13 Epigastric pain (principal)

== ENCOUNTER → 2023-07-26 | Outpatient (CLI) | payer OTHER ==
[~2023-07-26] MED LIST changes: -E-Z-GAS II EFFERVESCENT PACKET (SODIUM BICARB./CITRIC ACID/SIMETHICONE) As Ordered ONE; -E-Z-HD 98% w/w 340GM SUSP BTL As Ordered ONE; -E-Z-PAQUE 96% w/w SUSP 176GM BTL As Ordered ONE
== END ==
LOC: M RAD 07:24
PROVIDERS: ATTEND Internal Medicine Gastroenterology
DX: K30 Functional dyspepsia (principal)
CPT/HCPCS: 78227; A9537

== ENCOUNTER → 2023-08-03 | Outpatient (REF) | payer OTHER | LOC: M LAB REF 12:17 | PROVIDERS: ATTEND Physician Assistant Medical | DX: D51.9 Vitamin B12 deficiency anemia, unspecified (principal) ==

== ENCOUNTER → 2023-12-05 | Outpatient (CLI) | payer OTHER ==
[~2023-12-05] MED LIST changes: +B-12100020 PO; +HYDR-643 PO; +OMEP40CA5 PO; +ROSU40TA4 PO
[2023-12-05 12:58] LABS: BASO # 0.1 10^3/uL (0.0-0.2); BASO % 1.2 % (0.0-1.0); EOS # 0.4 10^3/uL (0.0-0.5); EOS % 4.8 % (0.0-3.0); HEMATOCRIT 43.4 % (42.0-52.0); HEMOGLOBIN 14.3 g/dl (13.5-17.5); LYMPH # 1.9 10^3/uL (1.5-5.0); LYMPH % 22.6 % (24.0-44.0); MEAN CORPUSCULAR HEMOGLOBIN 32.3 pg (27.0-33.0); MEAN CORPUSCULAR HGB CONC 32.9 g/dl (32.0-36.5); MONO # 0.8 10^3/uL (0.0-0.8); MONO % 9.3 % (2.0-8.0); NEUTROPHILS # 5.1 10^3/uL (1.5-8.5); NEUTROPHILS % 61.9 % (36.0-66.0); PLATELET COUNT, AUTOMATED 339 10^3/uL (150-450); RED BLOOD COUNT 4.43 10^6/uL (4.30-6.10); WHITE BLOOD COUNT 8.2 10^3/uL (4.0-10.0)
[2023-12-05 13:13] LABS: BLOOD UREA NITROGEN 31 MG/DL (9-23); CALCIUM LEVEL 9.2 MG/DL (8.3-10.6); CARBON DIOXIDE LEVEL 32 MMOL/L (20-31); CHLORIDE LEVEL 104 MMOL/L (98-107); CREATININE FOR GFR 1.04 MG/DL (0.70-1.30); GLOMERULAR FILTRATION RATE > 60.0 (>49); GLUCOSE, FASTING 93 MG/DL (74-106); POTASSIUM SERUM 4.9 MMOL/L (3.5-5.1); SODIUM LEVEL 140 MMOL/L (136-145)
== END ==
LOC: M WUC 10:50
PROVIDERS: ATTEND Podiatrist
DX: M20.41 Other hammer toe(s) (acquired), right foot (principal); M79.671 Pain in right foot; Z01.818 Encounter for other preprocedural examination

== ENCOUNTER 2023-12-15 06:40 | Day surgery (SDC) | payer OTHER ==
[~2023-12-15] VITALS: Ht 182.9 cm; Wt 86.6 kg
[~2023-12-15 06:40] MED LIST changes: +ceFAZolin SOD 2 GM in IV 1 EA IV ONE
[2023-12-15] MEDS ORDERED: LR 1,000 ML IV SCH (08:00)
[2023-12-15] MEDS ORDERED: ONDANSETRON 4MG 2ML VIAL As Ordered ONE (08:16)
[2023-12-15] MEDS ORDERED: LIDOCAINE 2% 100MG/5ML SDV (FOR ANES.) As Ordered ONE (08:16)
[2023-12-15] MEDS ORDERED: KETOROLAC 60MG 2ML VIAL As Ordered ONE (08:16)
[2023-12-15] MEDS ORDERED: propofoL 200 MG/20 ML VIAL As Ordered ONE (08:16)
[2023-12-15] MEDS ORDERED: fentaNYL 100 MCG/2 ML INJECTION As Ordered ONE (08:16)
[2023-12-15] MEDS ORDERED: MIDAZOLAM INJ 2MG/2ML VIAL As Ordered ONE (08:17)
[2023-12-15] MEDS ORDERED: GENTAMICIN SULF 80MG/2ML VIAL As Ordered ONE (08:18)
[2023-12-15] MEDS ORDERED: LIDOCAINE 2% MDV 20ML VIAL As Ordered ONE (08:18)
[2023-12-15] MEDS ORDERED: NEOSPORIN GU IRRIG 20ML VIAL As Ordered ONE (08:19)
[2023-12-15 09:57] VITALS: BP 133/72; TEMP 97.2; O2SAT 98
== END 2023-12-15 10:13 | disposition home or self-care (01) ==
LOC: M SDC 06:40
PROVIDERS: ATTEND Podiatrist
DX: M20.41 Other hammer toe(s) (acquired), right foot (principal); I10 Essential (primary) hypertension; E78.00 Pure hypercholesterolemia, unspecified; K21.9 Gastro-esophageal reflux disease without esophagitis; Z88.8 Allergy status to other drugs, medicaments and biological substances; Z79.899 Other long term (current) drug therapy; Z79.82 Long term (current) use of aspirin
CPT/HCPCS: 28285; 73630; 88300; J0665; J0690; J1100; J1580; J1885; J2250; J2405; J3010

== ENCOUNTER → 2024-02-28 | Outpatient (CLI) | payer OTHER ==
[~2024-02-28] MED LIST changes: -ASPI-161 PO; +ASPI-615 PO; -ceFAZolin SOD 2 GM in IV 1 EA IV ONE
== END ==
LOC: M WUC 10:13
PROVIDERS: ATTEND Physician Assistant
DX: S60.051A Contusion of right little finger without damage to nail, initial encounter (principal); W18.30XA Fall on same level, unspecified, initial encounter; Y92.009 Unspecified place in unspecified non-institutional (private) residence as the place of occurrence of the external cause

== ENCOUNTER → 2025-01-28 | Outpatient (CLI) | payer OTHER ==
[~2025-01-28] MED LIST changes: +ATOR-398 PO; -LIPI80TA PO; -ROSU40TA4 PO; +ROSU40TA81 PO; +THERTAB52 PO
[2025-01-28 10:05] LABS: BLOOD UREA NITROGEN 27 MG/DL (9-23); CALCIUM LEVEL 9.1 MG/DL (8.3-10.6); CARBON DIOXIDE LEVEL 32 MMOL/L (20-31); CHLORIDE LEVEL 103 MMOL/L (98-107); CREATININE FOR GFR 0.99 MG/DL (0.70-1.30); GLOMERULAR FILTRATION RATE > 60.0 (>49); GLUCOSE, FASTING 94 MG/DL (74-106); POTASSIUM SERUM 4.1 MMOL/L (3.5-5.1); SODIUM LEVEL 143 MMOL/L (136-145)
== END ==
LOC: M LAB 08:40
PROVIDERS: ATTEND Internal Medicine
DX: I10 Essential (primary) hypertension (principal)

== ENCOUNTER 2025-02-17 18:41 | Emergency (ER) | payer OTHER ==
[~2025-02-17] VITALS: Ht 182.9 cm; Wt 84.1 kg
[2025-02-17 19:21] LABS: HEMATOCRIT 38.4 % (42.0-52.0); HEMOGLOBIN 13.4 g/dl (13.5-17.5); MEAN CORPUSCULAR HEMOGLOBIN 31.9 pg (27.0-33.0); MEAN CORPUSCULAR HGB CONC 34.9 g/dl (32.0-36.5); MEAN CORPUSCULAR VOLUME 91.4 fl (80.0-96.0); PLATELET COUNT, AUTOMATED 328 10^3/uL (150-450); WHITE BLOOD COUNT 9.8 10^3/uL (4.0-10.0)
[2025-02-17 19:42] LABS: CALCIUM LEVEL 8.9 MG/DL (8.3-10.6); CREATININE FOR GFR 1.33 MG/DL (0.70-1.30); GLOMERULAR FILTRATION RATE 57.6 (>49); POTASSIUM SERUM 3.5 MMOL/L (3.5-5.1)
[2025-02-18 03:31] VITALS: TEMP 97.9
[2025-02-18 09:30] VITALS: BP 169/84; O2SAT 97
== END 2025-02-18 10:04 | disposition home or self-care (01) ==
LOC: M ED 18:41
DX: R63.8 Other symptoms and signs concerning food and fluid intake (principal); I10 Essential (primary) hypertension; E78.5 Hyperlipidemia, unspecified; Z88.8 Allergy status to other drugs, medicaments and biological substances; Z79.1 Long term (current) use of non-steroidal anti-inflammatories (NSAID); Z79.899 Other long term (current) drug therapy; Z79.810 Long term (current) use of selective estrogen receptor modulators (SERMs)